=== PATIENT | male | born 1970 | race African-American/Black ===

== ENCOUNTER 2016-09-20 20:18 | Emergency (ER) | payer BC ==
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
[2016-09-20 20:28] VITALS: BP 150/88
[2016-09-20] MEDS ORDERED: TETRACAINE HCL 0.5% OPH SOLN 2 ML ONE (20:44)
[2016-09-20] MEDS ORDERED: TETRACAINE HCL 0.5% OPH SOLN 2 ML OU ONE (20:45)
[2016-09-20] MEDS ORDERED: ERYTHROMYCIN 0.5% OPH OINTMENT 3.5 GM (ER DISP) OU PRN (21:17)
[2016-09-20] MEDS ORDERED: HYDROCODONE/ACETAMINOPHEN 5-325 MG 6 TAB/DSPK PO PRN (21:18)
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
== END 2016-09-20 21:37 | disposition home or self-care (01) ==
LOC: ER 20:18
DX: T20.40XA Corrosion of unspecified degree of head, face, and neck, unspecified site, initial encounter (principal); G47.33 Obstructive sleep apnea (adult) (pediatric); F17.210 Nicotine dependence, cigarettes, uncomplicated; X58.XXXA Exposure to other specified factors, initial encounter
CPT/HCPCS: 99283

== ENCOUNTER 2016-11-03 06:16 | Inpatient (IN) | payer BC ==
[2016-11-03] MEDS ORDERED: IPRATROPIUM/ALBUTEROL 0.5-2.5 MG/3 ML AMPUL NEB ONE (06:51)
[2016-11-03] MEDS ORDERED: NORMAL SALINE 1000 ML 1,000 ML IV ONE ×2 (06:52→09:46)
[2016-11-03 07:06] LABS: ABSOLUTE BASOPHILS # (AUTO) 0.1 10^3/uL (0.0-0.2); ABSOLUTE LYMPHOCYTES (AUTO) 0.4 10^3/uL (0.5-4.7); ABSOLUTE MONOCYTES (AUTO) 0.7 10^3/uL (0.1-1.4); ABSOLUTE NEUT (AUTO) 5.3 10^3/uL (1.7-8.2); BASOPHILS % (AUTO) 0.8 % (0-2); EOSINOPHILS % (AUTO) 0.6 % (0-6); HEMATOCRIT 42.6 % (37.9-51.0); HGB HCT DIFFERENCE -0.6; LYMPHOCYTES % (AUTO) 6.3 % (13-45); MEAN CORPUSCULAR HEMOGLOBIN 28.8 pg (27.0-33.4); MEAN CORPUSCULAR HGB CONC 32.9 g/dL (32.0-36.0); MEAN CORPUSCULAR VOLUME 88 fl (80-97); MONOCYTES % (AUTO) 10.3 % (3-13); RED BLOOD COUNT 4.86 10^6/uL (4.35-5.55); RED CELL DISTRIBUTION WIDTH 14.2 % (11.5-14.0); VENOUS BLOOD BASE EXCESS 5.5 mmol/L; VENOUS BLOOD HCO3 33.9 mmol/L (20-32); VENOUS BLOOD PH 7.33 (7.30-7.42); WHITE BLOOD COUNT 6.5 10^3/uL (4.0-10.5)
[2016-11-03 07:09] LABS: VENOUS BLOOD PCO2 65.8 mmHg (35-63)
[2016-11-03 07:26] LABS: ALANINE AMINOTRANSFERASE 28 U/L (21-72); ALBUMIN 3.6 g/dL (3.5-5.0); ALKALINE PHOSPHATASE 74 U/L (38-126); ANION GAP 6 (5-19); ASPARTATE AMINO TRANSFERASE 36 U/L (17-59); BILIRUBIN,TOTAL 0.6 mg/dL (0.2-1.3); BLOOD UREA NITROGEN 14 mg/dL (7-20); CALCIUM 8.9 mg/dL (8.4-10.2); CARBON DIOXIDE 34 mmol/L (22-30); CHLORIDE 96 mmol/L (98-107); CREATININE RESULT 0.99 mg/dL (0.52-1.25); GLUCOSE 116 mg/dL (75-110); LIPASE 15.2 U/L (23-300); MAGNESIUM 1.8 mg/dL (1.6-2.3); POTASSIUM 4.8 mmol/L (3.6-5.0); SODIUM 135.5 mmol/L (137-145); TOTAL PROTEIN 7.2 g/dL (6.3-8.2)
[2016-11-03] MEDS ORDERED: CEFTRIAXONE 1 GM/D5W RTU 50 ML IV ONE (07:39)
[2016-11-03] MEDS ORDERED: AZITHROMYCIN 250 MG TABLET PO ONE (07:39)
[2016-11-03] MEDS ORDERED: ACETAMINOPHEN 325 MG TABLET PO ONE (07:40)
[2016-11-03] MEDS ORDERED: ALBUTEROL SULFATE 0.083% NEB 2.5 MG/3 ML AMPUL NEB ONE (07:42)
[2016-11-03 08:08] LABS: PROTHROMBIN TIME 13.8 SEC (11.4-15.4)
[2016-11-03 08:10] LABS: D-DIMER 0.39 ug/mL (0.00-0.50)
[2016-11-03 08:54] LABS: APPEARANCE,URINE CLEAR; BILIRUBIN,URINE NEGATIVE (NEGATIVE); GLUCOSE, URINE NEGATIVE (NEGATIVE); KETONES,URINE NEGATIVE (NEGATIVE); LEUKOCYTE ESTERASE,URINE NEGATIVE (NEGATIVE); NITRITE,URINE NEGATIVE (NEGATIVE); PROTEIN,URINE 30 mg/dL (NEGATIVE); URINE SPECIFIC GRAVITY 1.024
[2016-11-03 09:11] LABS: URINE BARBITURATES SCREEN NEGATIVE; URINE METHADONE SCREEN NEGATIVE; URINE OPIATES LOW NEGATIVE; URINE PHENCYCLIDINE SCREEN NEGATIVE
--- NOTE | 2016-11-03 10:04 | ER Document Report ---
ED General - General Chief Complaint: Pain All Over Stated Complaint: BODY PAIN TRAVEL OUTSIDE OF THE [place] IN LAST 30 DAYS: No - HPI Patient complains to provider of: diffuse pain fever respiratory di stress Notes: Patient coming in was noticed in the front to have the coughing breathing according to the triage nurse patient sleeping nodding off while she was answering questions patient was found to be hypoxic. Patient states has a history of sleep apnea has not been wearing his BiPAP. Patient also found to have a fever. Patient was brought to the back placed and oxygen oxygenation status remained normal while patient was awake our patient V did fall asleep will become hypoxic. Upon evaluation patient GCS of 15 over when resting and fasting lipid patient will easily fall asleep. Patient denies any pain states cough productive states he is having diffuse myalgias. Denies specific chest pain abdominal pain denies any nausea vomiting diarrhea. - Related Data Allergies/Adverse Reactions: No Known Allergies Allergy (Verified 11/03/16 06:26) Home Medications: Current Home Medications No Home Medications 11/03/16 [History] Past Medical History - Social History Smoking Status: Unknown if Ever Smoked Family History: Reviewed & Not Pertinent Pulmonary Medical History: Reports: Hx Sleep Apnea Past Surgical History: Reports: Hx Tonsillectomy, Other - Tracheostomy - Immunizations Hx Diphtheria, Pertussis, Tetanus Vaccination: Yes Review of Systems - Review of Systems Constitutional: Other - Myalgias EENT: No symptoms reported Cardiovascular: No symptoms reported Respiratory: Cough, Short of breath Gastrointestinal: No symptoms reported Genitourinary: No symptoms reported Male Genitourinary: No symptoms reported Musculoskeletal: No symptoms reported Skin: No symptoms reported Hematologic/Lymphatic: No symptoms reported Neurological/Psychological: No symptoms reported -: Yes All other systems reviewed and negative Physical Exam - Vital signs Vitals: Temp Pulse Resp BP Pulse Ox 99.0 F 111 H 22 H 121/73 80 L 11/03/16 06:32 11/03/16 06:32 11/03/16 06:32 11/03/16 06:32 11/03/16 06:32 Interpretation: Tachycardic, Hypoxic, Tachypneic - General General appearance: Appears well, Alert - HEENT Head: Normocephalic, Atraumatic Eyes: Normal Pupils: PERRL - Respiratory Respiratory status: No respiratory distress Chest status: Nontender Breath sounds: Wheezing Chest palpation: Normal - Cardiovascular Rhythm: Regular Heart sounds: Normal auscultation Murmur: No - Abdominal Inspection: Normal Distension: No distension Bowel sounds: Normal Tenderness: Nontender Organomegaly: No organomegaly - Back Back: Normal, Nontender - Extremities General upper extremity: Normal inspection, Nontender, Normal color, Normal ROM , Normal temperature General lower extremity: Normal inspection, Nontender, Normal color, Normal ROM , Normal temperature, Normal weight bearing. No: Royce's sign - Neurological Neuro grossly intact: Yes Cognition: Normal Orientation: AAOx4 Eveline Coma Scale Eye Opening: Spontaneous [place] Coma Scale Verbal: Oriented [place] Coma Scale Motor: Obeys Commands Eveline Coma Scale Total: 15 Speech: Normal Motor strength normal: LUE, RUE, LLE, RLE Sensory: Normal - Psychological Associated symptoms: Normal affect, Normal mood - Skin Skin Temperature: Warm Skin Moisture: Dry Skin Color: Normal Course - Re-evaluation Re-evalutation: 11/03/16 15:11 Patient was transitioned from is accounted to BiPAP. Patient chest x-ray does show a possible pneumonia. She was started on Rocephin and azithromycin. Patient was referred to the hospital service for further evaluation and admission. - Vital Signs Vital signs: Temp Pulse Resp BP Pulse Ox 98.7 F 91 22 H 121/88 H 97 11/03/16 09:39 11/03/16 14:00 11/03/16 14:00 11/03/16 14:02 11/03/16 14:02 - Laboratory Result Diagrams: 11/03/16 06:50 11/03/16 06:50 Laboratory results interpreted by me: 11/03/16 11/03/16 11/03/16 06:50 06:50 06:50 RDW 14.2 H Seg Neutrophils % 82.0 H Lymphocytes % 6.3 L Absolute Lymphocytes 0.4 L VBG pCO2 65.8 H* VBG HCO3 33.9 H Sodium 135.5 L Chloride 96 L Carbon Dioxide 34 H Glucose 116 H NT-Pro-B Natriuret Pep Lipase 15.2 L Urine Protein Urine Blood Urine Urobilinogen 11/03/16 11/03/16 07:39 08:37 RDW Seg Neutrophils % Lymphocytes % Absolute Lymphocytes VBG pCO2 VBG HCO3 Sodium Chloride Carbon Dioxide Glucose NT-Pro-B Natriuret Pep 446 H Lipase Urine Protein 30 H Urine Blood MODERATE H Urine Urobilinogen 4.0 H Critical Care Note - Critical Care Note Total time excluding time spent on procedures (mins): 35 Comments: Multiple evaluations for tachycardia hypoxia requiring BiPAP. Discharge - Discharge Clinical Impression: Hypoxia Respiratory failure Qualifiers: Chronicity: acute Respiratory failure complication: hypoxia and hypercapnia Qualified Code(s): J96.01 - Acute respiratory failure with hypoxia Pneumonia Qualifiers: Pneumonia type: due to unspecified organism Laterality: unspecified laterality Lung location: unspecified part of lung Qualified Code(s): J18.9 - Pneumonia, unspecified organism Fever Qualifiers: Fever type: unspecified Qualified Code(s): R50.9 - Fever, unspecified Disposition: HOME, SELF-CARE Admitting Provider: [facility] Unit Admitted: [facility]
[2016-11-03] MEDS ORDERED: ALBUTEROL SULFATE 0.083% NEB 2.5 MG/3 ML AMPUL NEB PRN (11:06)
[2016-11-03] MEDS ORDERED: ENOXAPARIN SODIUM INJ 40 MG/0.4 ML DISP.SYRIN SUBCUT ONE (13:00)
[2016-11-03] MEDS: ALBUTEROL SULFATE 0.083% NEB 2.5 MG/3 ML AMPUL NEB SCH ×2 (14:23→19:52)
--- NOTE | 2016-11-03 17:34 | PDOC H&P ---
History of Present Illness Admission Date/PCP: 11/03/16 11:06 Patient complains of: Shortness of breath History of Present Illness: JERMAINE FIGUEROA is a 46 year old male with one-day shortness of breath, fevers. Patient noted to have hypoxia in the emergency department. He states that his son has been sick. It's noted that patient has history of tracheostomy stoma has now healed. It is also noted that patient has obstructive sleep apnea and is on home CPAP. Past Medical History Pulmonary Medical History: Reports: Sleep Apnea Past Surgical History Past Surgical History: Reports: Tonsillectomy, Other - Tracheostomy Social History Information Source: Patient Lives with: Spouse/Significant other Smoking Status: Current Some Day Smoker - Cigar Frequency of Alcohol Use: None Hx Recreational Drug Use: No Drugs: None Hx Prescription Drug Abuse: No - Advance Directive Resuscitation Status: Full Code Family History Family History: Malignancy - Colon cancer Parental Family History Reviewed: Yes Children Family History Reviewed: Yes Sibling(s) Family History Reviewed.: Yes Medication/Allergy Home Medications: No Home Medications 11/03/16 Allergies/Adverse Reactions: No Known Allergies Allergy (Verified 11/03/16 06:26) Review of Systems Constitutional: PRESENT: chills, fever(s). ABSENT: headache(s), weight gain, weight loss Eyes: ABSENT: visual disturbances Ears: ABSENT: hearing changes Cardiovascular: ABSENT: chest pain, dyspnea on exertion, edema, orthropnea, palpitations Respiratory: PRESENT: cough, dyspnea. ABSENT: hemoptysis Gastrointestinal: ABSENT: abdominal pain, constipation, diarrhea, hematemesis, hematochezia, nausea, vomiting Genitourinary: ABSENT: dysuria, hematuria Musculoskeletal: ABSENT: joint swelling Integumentary: ABSENT: rash, wounds Neurological: ABSENT: abnormal gait, abnormal speech, confusion, dizziness, focal weakness, syncope Psychiatric: ABSENT: anxiety, depression, homidical ideation, suicidal ideation Endocrine: ABSENT: cold intolerance, heat intolerance, polydipsia, polyuria Hematologic/Lymphatic: ABSENT: easy bleeding, easy bruising Physical Exam Vital Signs: Temp Pulse Resp BP Pulse Ox 99.3 F 101 H 19 138/84 H 94 11/03/16 15:56 11/03/16 15:58 11/03/16 15:56 11/03/16 15:56 11/03/16 15:56 Intake & Output 11/02/16 11/03/16 11/04/16 06:59 06:59 06:59 Weight 131 kg PHYSICAL EXAM: GENERAL: Appears well, no acute distress, obese HEENT: Normocephalic, no scleral icterus, conjunctiva clear, EOEM intact, PERRLA , moist mucous membranes NECK: trachea midline, healed stoma from remote tracheostomy, no thyromegally RESPIRATORY: Bilateral wheezes/rhonchi CARDIAC: Regular rate and rhythm, no murmur/elisa/rub ABDOMEN: Soft, no distension, no tenderness, no guarding, normal bowel sounds, negative Mace sign RECTAL: deferred : deferred EXTREMITIES: No edema, cyanosis, clubbing MUSCULOSKELETAL: No joint swelling or deformity VASCULAR: normal peripheral pulses NEUROLOGIC: Alert, oriented to person/place/time, normal speech, cranial nerves grossly intact, 5/5 strength in all extremities, tactile sensation intact in all extremities SKIN: No rash, no wounds, no worrisome skin lesions PSYCHIATRIC: Normal mood, normal affect Results Laboratory Results: Labs- All tests 24 hr 11/03/16 11/03/16 11/03/16 06:50 06:50 06:50 WBC 6.5 RBC 4.86 Hgb 14.0 Hct 42.6 MCV 88 MCH 28.8 MCHC 32.9 RDW 14.2 H Plt Count 254 Seg Neutrophils % 82.0 H Lymphocytes % 6.3 L Monocytes % 10.3 Eosinophils % 0.6 Basophils % 0.8 Absolute Neutrophils 5.3 Absolute Lymphocytes 0.4 L Absolute Monocytes 0.7 Absolute Eosinophils 0.0 Absolute Basophils 0.1 PT Cancelled INR Cancelled D-Dimer VBG pH VBG pCO2 VBG HCO3 VBG Base Excess Sodium 135.5 L Potassium 4.8 Chloride 96 L Carbon Dioxide 34 H Anion Gap 6 BUN 14 Creatinine 0.99 Est GFR ( Amer) > 60 Est GFR (Non-Af Amer) > 60 Glucose 116 H POC Glucose Calcium 8.9 Magnesium 1.8 Total Bilirubin 0.6 Direct Bilirubin 0.0 AST 36 ALT 28 Alkaline Phosphatase 74 Troponin I NT-Pro-B Natriuret Pep Total Protein 7.2 Albumin 3.6 Lipase 15.2 L Urine Color Urine Appearance Urine pH Ur Specific [place] Urine Protein Urine Glucose (UA) Urine Ketones Urine Blood Urine Nitrite Urine Bilirubin Urine Urobilinogen Ur Leukocyte Esterase Urine WBC (Auto) Urine RBC (Auto) Squamous Epi Cells Auto Urine Mucus (Auto) Urine Ascorbic Acid Urine Opiates Screen Urine Methadone Screen Ur Barbiturates Screen Ur Phencyclidine Scrn Ur Amphetamines Screen U Benzodiazepines Scrn Urine Cocaine Screen U Marijuana (THC) Screen Influenza A (Rapid) Influenza B (Rapid) 11/03/16 11/03/16 11/03/16 06:50 06:50 07:04 WBC RBC Hgb Hct MCV MCH MCHC RDW Plt Count Seg Neutrophils % Lymphocytes % Monocytes % Eosinophils % Basophils % Absolute Neutrophils Absolute Lymphocytes Absolute Monocytes Absolute Eosinophils Absolute Basophils PT INR D-Dimer VBG pH 7.33 VBG pCO2 65.8 H* VBG HCO3 33.9 H VBG Base Excess 5.5 Sodium Potassium Chloride Carbon Dioxide Anion Gap BUN Creatinine Est GFR ( Amer) Est GFR (Non-Af Amer) Glucose POC Glucose 109 Calcium Magnesium Total Bilirubin Direct Bilirubin AST ALT Alkaline Phosphatase Troponin I NT-Pro-B Natriuret Pep Total Protein Albumin Lipase Urine Color Urine Appearance Urine pH Ur Specific [place] Urine Protein Urine Glucose (UA) Urine Ketones Urine Blood Urine Nitrite Urine Bilirubin Urine Urobilinogen Ur Leukocyte Esterase Urine WBC (Auto) Urine RBC (Auto) Squamous Epi Cells Auto Urine Mucus (Auto) Urine Ascorbic Acid Urine Opiates Screen Urine Methadone Screen Ur Barbiturates Screen Ur Phencyclidine Scrn Ur Amphetamines Screen U Benzodiazepines Scrn Urine Cocaine Screen U Marijuana (THC) Screen Influenza A (Rapid) NEGATIVE Influenza B (Rapid) NEGATIVE 11/03/16 11/03/16 11/03/16 07:39 07:39 07:39 WBC RBC Hgb Hct MCV MCH MCHC RDW Plt Count Seg Neutrophils % Lymphocytes % Monocytes % Eosinophils % Basophils % Absolute Neutrophils Absolute Lymphocytes Absolute Monocytes Absolute Eosinophils Absolute Basophils PT Cancelled 13.8 INR Cancelled 1.03 D-Dimer 0.39 VBG pH VBG pCO2 VBG HCO3 VBG Base Excess Sodium Potassium Chloride Carbon Dioxide Anion Gap BUN Creatinine Est GFR ( Amer) Est GFR (Non-Af Amer) Glucose POC Glucose Calcium Magnesium Total Bilirubin Direct Bilirubin AST ALT Alkaline Phosphatase Troponin I NT-Pro-B Natriuret Pep 446 H Total Protein Albumin Lipase Urine Color Urine Appearance Urine pH Ur Specific [place] Urine Protein Urine Glucose (UA) Urine Ketones Urine Blood Urine Nitrite Urine Bilirubin Urine Urobilinogen Ur Leukocyte Esterase Urine WBC (Auto) Urine RBC (Auto) Squamous Epi Cells Auto Urine Mucus (Auto) Urine Ascorbic Acid Urine Opiates Screen Urine Methadone Screen Ur Barbiturates Screen Ur Phencyclidine Scrn Ur Amphetamines Screen U Benzodiazepines Scrn Urine Cocaine Screen U Marijuana (THC) Screen Influenza A (Rapid) Influenza B (Rapid) 11/03/16 11/03/16 11/03/16 07:39 08:37 08:37 WBC RBC Hgb Hct MCV MCH MCHC RDW Plt Count Seg Neutrophils % Lymphocytes % Monocytes % Eosinophils % Basophils % Absolute Neutrophils Absolute Lymphocytes Absolute Monocytes Absolute Eosinophils Absolute Basophils PT INR D-Dimer VBG pH VBG pCO2 VBG HCO3 VBG Base Excess Sodium Potassium Chloride Carbon Dioxide Anion Gap BUN Creatinine Est GFR ( Amer) Est GFR (Non-Af Amer) Glucose POC Glucose Calcium Magnesium Total Bilirubin Direct Bilirubin AST ALT Alkaline Phosphatase Troponin I < 0.012 NT-Pro-B Natriuret Pep Total Protein Albumin Lipase Urine Color YELLOW Urine Appearance CLEAR Urine pH 5.0 Ur Specific [place] 1.024 Urine Protein 30 H Urine Glucose (UA) NEGATIVE Urine Ketones NEGATIVE Urine Blood MODERATE H Urine Nitrite NEGATIVE Urine Bilirubin NEGATIVE Urine Urobilinogen 4.0 H Ur Leukocyte Esterase NEGATIVE Urine WBC (Auto) 2 Urine RBC (Auto) 8 Squamous Epi Cells Auto <1 Urine Mucus (Auto) RARE Urine Ascorbic Acid NEGATIVE Urine Opiates Screen NEGATIVE Urine Methadone Screen NEGATIVE Ur Barbiturates Screen NEGATIVE Ur Phencyclidine Scrn NEGATIVE Ur Amphetamines Screen NEGATIVE U Benzodiazepines Scrn NEGATIVE Urine Cocaine Screen NEGATIVE U Marijuana (THC) Screen NEGATIVE Influenza A (Rapid) Influenza B (Rapid) Impressions: Chest X-Ray 11/03/16 06:51 IMPRESSION: Focal area of increased density seen in the infrahilar region on the right medially which could represent area of atelectasis, edema or developing infiltrate. Cardiomegaly with central pulmonary vascular congestion. Assessment & Plan - Diagnosis (1) Acute hypoxemic respiratory failure Is this a current diagnosis for this admission?: YesPlan: Continue oxygen supplementation. (2) Pneumonia Qualifiers: Pneumonia type: due to unspecified organism Laterality: unspecified laterality Lung location: unspecified part of lung Qualified Code(s): J18.9 - Pneumonia, unspecified organism Is this a current diagnosis for this admission?: YesPlan: Likely bacterial. Continue IV Rocephin and IV azithromycin initiated in the emergency department. Check blood and sputum culture. (3) Obstructive sleep apnea Is this a current diagnosis for this admission?: YesPlan: Continue BiPAP for now. Patient has home CPAP in place. - Time Time Spent: Greater than 70 Minutes Anticipated discharge: Home Within: within 72 hours - Inpatient Certification Based on my medical assessment, after consideration of the patient's comorbidities, presenting symptoms, or acuity I expect that the services needed warrant INPATIENT care.: Yes I certify that my determination is in accordance with my understanding of Medicare's requirements for reasonable and necessary INPATIENT services [42 CFR 412.3e].: Yes Medical Necessity: Need Close Monitoring Due to Risk of Patient Decompensation, Need For Continuous Telemetry Monitoring, Need for IV Antibiotics
[2016-11-03] MEDS: ACETAMINOPHEN 325 MG TABLET PO PRN (20:11)
[2016-11-03] MEDS: GUAIFENESIN 600 MG TABLET.SA PO SCH (21:46)
[2016-11-04] MEDS: ACETAMINOPHEN 325 MG TABLET PO PRN (05:47)
[2016-11-04 06:15] LABS: ANION GAP 9 (5-19); BLOOD UREA NITROGEN 13 mg/dL (7-20); CALCIUM 8.8 mg/dL (8.4-10.2); CARBON DIOXIDE 32 mmol/L (22-30); CHLORIDE 94 mmol/L (98-107); CREATININE RESULT 0.79 mg/dL (0.52-1.25); GLUCOSE 106 mg/dL (75-110); POTASSIUM 4.5 mmol/L (3.6-5.0); SODIUM 134.9 mmol/L (137-145)
[2016-11-04 06:17] LABS: ABSOLUTE BASOPHILS # (AUTO) 0.1 10^3/uL (0.0-0.2); ABSOLUTE LYMPHOCYTES (AUTO) 0.6 10^3/uL (0.5-4.7); ABSOLUTE MONOCYTES (AUTO) 0.6 10^3/uL (0.1-1.4); ABSOLUTE NEUT (AUTO) 3.1 10^3/uL (1.7-8.2); BASOPHILS % (AUTO) 1.6 % (0-2); EOSINOPHILS % (AUTO) 0.2 % (0-6); HEMATOCRIT 44.8 % (37.9-51.0); HEMOGLOBIN 14.4 g/dL (13.5-17.0); HGB HCT DIFFERENCE -1.6; LYMPHOCYTES % (AUTO) 13.5 % (13-45); MEAN CORPUSCULAR HEMOGLOBIN 28.3 pg (27.0-33.4); MEAN CORPUSCULAR HGB CONC 32.2 g/dL (32.0-36.0); MEAN CORPUSCULAR VOLUME 88 fl (80-97); MONOCYTES % (AUTO) 14.4 % (3-13); RED CELL DISTRIBUTION WIDTH 13.8 % (11.5-14.0); SEGMENTED NEUTROPHILS % (AUTO) 70.3 % (42-78); WHITE BLOOD COUNT 4.4 10^3/uL (4.0-10.5)
[2016-11-04] MEDS: ALBUTEROL SULFATE 0.083% NEB 2.5 MG/3 ML AMPUL NEB SCH ×3 (07:43→19:41)
--- NOTE | 2016-11-04 08:20 | EKG REPORT ---
SEVERITY:- BORDERLINE ECG - SINUS TACHYCARDIA PROBABLE LEFT ATRIAL ABNORMALITY BORDERLINE LEFT AXIS DEVIATION : Confirmed by: Katherine Hutson MD 04-Nov-2016 08:19:35
[2016-11-04] MEDS: ENOXAPARIN SODIUM INJ 40 MG/0.4 ML DISP.SYRIN SUBCUT SCH (09:53)
[2016-11-04] MEDS: AZITHROMYCIN 500 MG in DEXTROSE 5%-WATER 250 ML IV SCH (09:54)
[2016-11-04] MEDS: GUAIFENESIN 600 MG TABLET.SA PO SCH ×2 (09:54→22:23)
[2016-11-04] MEDS: CEFTRIAXONE 1 GM/D5W RTU 50 ML IV SCH (09:55)
--- NOTE | 2016-11-04 18:26 | PDOC PROGRESS REPORT ---
Subjective Progress Note for:: 11/04/16 Subjective:: Patient shortness of breath is improved. Patient denies fever, chills, headache , new focal weakness, chest pain, abdominal pain, nausea, vomiting, diarrhea, constipation. Physical Exam Vital Signs: Temp Pulse Resp BP Pulse Ox 98.0 F 92 19 108/82 96 11/04/16 15:57 11/04/16 15:57 11/04/16 15:57 11/04/16 15:57 11/04/16 15:57 Intake & Output 11/03/16 11/04/16 11/05/16 06:59 06:59 06:59 Intake Total 608 500 Output Total 800 Balance 608 -300 Weight 131 kg GENERAL: No acute distress, obese HEENT: Conjunctiva clear, nonicteric, moist mucous membranes, no JVD, midline trachea RESPIRATORY: Faint bilateral wheezes, good air excursion CARDIAC: Regular rate and rhythm, no murmurs/gallops/rubs ABDOMEN: Soft, nondistended, nontender, positive bowel sounds, no rebound, no guarding EXTREMETIES: No edema, cyanosis, clubbing NEUROLOGIC: Alert, oriented to person/place/time, CN's grossly intact, no focal deficits SKIN: No rash, wounds PSYCH: Normal mood, normal affect Results Laboratory Results: 11/04/16 05:28 11/04/16 05:28 11/04/16 11/04/16 05:28 05:28 WBC 4.4 RBC 5.10 Hgb 14.4 Hct 44.8 MCV 88 MCH 28.3 MCHC 32.2 RDW 13.8 Plt Count 185 Seg Neutrophils % 70.3 Lymphocytes % 13.5 Monocytes % 14.4 H Eosinophils % 0.2 Basophils % 1.6 Absolute Neutrophils 3.1 Absolute Lymphocytes 0.6 Absolute Monocytes 0.6 Absolute Eosinophils 0.0 Absolute Basophils 0.1 Sodium 134.9 L Potassium 4.5 Chloride 94 L Carbon Dioxide 32 H Anion Gap 9 BUN 13 Creatinine 0.79 Est GFR ( Amer) > 60 Est GFR (Non-Af Amer) > 60 Glucose 106 Calcium 8.8 11/04/16 07:10 Sputum Gram Stain - Final 11/04/16 07:10 Sputum Sputum Culture - Final Impressions: Chest X-Ray 11/03/16 06:51 IMPRESSION: Focal area of increased density seen in the infrahilar region on the right medially which could represent area of atelectasis, edema or developing infiltrate. Cardiomegaly with central pulmonary vascular congestion. Assessment & Plan - Diagnosis (1) Acute hypoxemic respiratory failure Is this a current diagnosis for this admission?: YesPlan: Continue oxygen supplementation. Attempt to wean off oxygen prior to discharge. (2) Pneumonia Qualifiers: Pneumonia type: due to unspecified organism Laterality: unspecified laterality Lung location: unspecified part of lung Qualified Code(s): J18.9 - Pneumonia, unspecified organism Is this a current diagnosis for this admission?: YesPlan: Likely bacterial. Continue IV Rocephin and IV azithromycin initiated in the emergency department. Check blood and sputum culture. (3) Obstructive sleep apnea Is this a current diagnosis for this admission?: YesPlan: Continue BiPAP for now. Patient has home CPAP in place. - Time Time Spent with patient: 25-34 minutes
[2016-11-05 05:08] LABS: ABSOLUTE EOSINOPHILS # (AUTO) 0.1 10^3/uL (0.0-0.6); ABSOLUTE LYMPHOCYTES (AUTO) 1.2 10^3/uL (0.5-4.7); ABSOLUTE MONOCYTES (AUTO) 0.6 10^3/uL (0.1-1.4); ABSOLUTE NEUT (AUTO) 2.8 10^3/uL (1.7-8.2); BASOPHILS % (AUTO) 0.8 % (0-2); EOSINOPHILS % (AUTO) 1.4 % (0-6); HEMATOCRIT 45.8 % (37.9-51.0); HGB HCT DIFFERENCE -0.8; LYMPHOCYTES % (AUTO) 25.6 % (13-45); MEAN CORPUSCULAR HEMOGLOBIN 28.9 pg (27.0-33.4); MEAN CORPUSCULAR HGB CONC 32.8 g/dL (32.0-36.0); MEAN CORPUSCULAR VOLUME 88 fl (80-97); MONOCYTES % (AUTO) 12.7 % (3-13); RED BLOOD COUNT 5.19 10^6/uL (4.35-5.55); RED CELL DISTRIBUTION WIDTH 13.8 % (11.5-14.0); SEGMENTED NEUTROPHILS % (AUTO) 59.5 % (42-78); WHITE BLOOD COUNT 4.7 10^3/uL (4.0-10.5)
[2016-11-05 05:25] LABS: ANION GAP 11 (5-19); BLOOD UREA NITROGEN 16 mg/dL (7-20); CALCIUM 9.2 mg/dL (8.4-10.2); CARBON DIOXIDE 34 mmol/L (22-30); CHLORIDE 93 mmol/L (98-107); CREATININE RESULT 1.04 mg/dL (0.52-1.25); GLUCOSE 103 mg/dL (75-110); SODIUM 138.4 mmol/L (137-145)
[2016-11-05] MEDS: ALBUTEROL SULFATE 0.083% NEB 2.5 MG/3 ML AMPUL NEB SCH ×3 (08:38→19:43)
[2016-11-05] MEDS: GUAIFENESIN 600 MG TABLET.SA PO SCH ×2 (10:34→21:42)
[2016-11-05] MEDS: ENOXAPARIN SODIUM INJ 40 MG/0.4 ML DISP.SYRIN SUBCUT SCH (10:34)
[2016-11-05] MEDS: CEFTRIAXONE 1 GM/D5W RTU 50 ML IV SCH (10:35)
[2016-11-05] MEDS: AZITHROMYCIN 500 MG in DEXTROSE 5%-WATER 250 ML IV SCH (10:35)
--- NOTE | 2016-11-05 20:24 | PDOC PROGRESS REPORT ---
Subjective Progress Note for:: 11/05/16 Subjective:: His shortness of breath is improving. His cough is minimally productive. He denies fevers sweats or chills. He denies chest pain, abdominal pain, nausea vomiting or diarrhea. Physical Exam Vital Signs: Temp Pulse Resp BP Pulse Ox 98.0 F 95 19 139/88 H 94 11/05/16 07:25 11/05/16 07:25 11/05/16 07:25 11/05/16 07:25 11/05/16 07:25 Intake & Output 11/04/16 11/05/16 11/06/16 06:59 06:59 06:59 Intake Total 608 1328 Output Total 2050 Balance 608 -722 Weight 131 kg 126.9 kg Additional comments: GENERAL: No acute distress, obese HEENT: Conjunctiva clear, nonicteric, moist mucous membranes, no JVD, midline trachea RESPIRATORY: Faint bilateral wheezes, good air excursion CARDIAC: Regular rate and rhythm, no murmurs/gallops/rubs ABDOMEN: Soft, nondistended, nontender, positive bowel sounds, no rebound, no guarding EXTREMETIES: No edema, cyanosis, clubbing NEUROLOGIC: Alert, oriented to person/place/time, CN's grossly intact, no focal deficits SKIN: No rash, wounds PSYCH: Normal mood, normal affect Results Laboratory Results: 11/05/16 04:15 11/05/16 04:15 11/05/16 11/05/16 04:15 04:15 WBC 4.7 RBC 5.19 Hgb 15.0 Hct 45.8 MCV 88 MCH 28.9 MCHC 32.8 RDW 13.8 Plt Count 178 Seg Neutrophils % 59.5 Lymphocytes % 25.6 Monocytes % 12.7 Eosinophils % 1.4 Basophils % 0.8 Absolute Neutrophils 2.8 Absolute Lymphocytes 1.2 Absolute Monocytes 0.6 Absolute Eosinophils 0.1 Absolute Basophils 0.0 Sodium 138.4 Potassium 5.0 Chloride 93 L Carbon Dioxide 34 H Anion Gap 11 BUN 16 Creatinine 1.04 Est GFR ( Amer) > 60 Est GFR (Non-Af Amer) > 60 Glucose 103 Calcium 9.2 11/04/16 07:10 Sputum Gram Stain - Final 11/04/16 07:10 Sputum Sputum Culture - Final Impressions: Chest X-Ray 11/03/16 06:51 IMPRESSION: Focal area of increased density seen in the infrahilar region on the right medially which could represent area of atelectasis, edema or developing infiltrate. Cardiomegaly with central pulmonary vascular congestion. Assessment & Plan - Diagnosis (1) Pneumonia Qualifiers: Pneumonia type: due to unspecified organism Laterality: unspecified laterality Lung location: unspecified part of lung Qualified Code(s): J18.9 - Pneumonia, unspecified organism Is this a current diagnosis for this admission?: YesPlan: Continue current antibiotics. We'll consider switching to oral antibiotics and possibly discharging in 24-48 hours. (2) Acute hypoxemic respiratory failure Is this a current diagnosis for this admission?: YesPlan: Oxygen supplementation as needed. (3) Obstructive sleep apnea Is this a current diagnosis for this admission?: YesPlan: He has home CPAP. We'll use BiPAP in-hospital as needed. - Time Time Spent with patient: 15-24 minutes
[2016-11-06 05:38] LABS: ABSOLUTE EOSINOPHILS # (AUTO) 0.1 10^3/uL (0.0-0.6); ABSOLUTE LYMPHOCYTES (AUTO) 1.7 10^3/uL (0.5-4.7); ABSOLUTE MONOCYTES (AUTO) 0.6 10^3/uL (0.1-1.4); ABSOLUTE NEUT (AUTO) 1.9 10^3/uL (1.7-8.2); BASOPHILS % (AUTO) 0.9 % (0-2); EOSINOPHILS % (AUTO) 2.8 % (0-6); HEMATOCRIT 45.4 % (37.9-51.0); HEMOGLOBIN 14.9 g/dL (13.5-17.0); HGB HCT DIFFERENCE -0.7; LYMPHOCYTES % (AUTO) 38.4 % (13-45); MEAN CORPUSCULAR HEMOGLOBIN 28.8 pg (27.0-33.4); MEAN CORPUSCULAR HGB CONC 32.9 g/dL (32.0-36.0); MEAN CORPUSCULAR VOLUME 88 fl (80-97); MONOCYTES % (AUTO) 14.1 % (3-13); RED BLOOD COUNT 5.18 10^6/uL (4.35-5.55); RED CELL DISTRIBUTION WIDTH 13.9 % (11.5-14.0); SEGMENTED NEUTROPHILS % (AUTO) 43.8 % (42-78); WHITE BLOOD COUNT 4.3 10^3/uL (4.0-10.5)
[2016-11-06 05:54] LABS: ANION GAP 10 (5-19); BLOOD UREA NITROGEN 14 mg/dL (7-20); CARBON DIOXIDE 33 mmol/L (22-30); CHLORIDE 93 mmol/L (98-107); GLUCOSE 92 mg/dL (75-110); POTASSIUM 4.4 mmol/L (3.6-5.0); SODIUM 135.7 mmol/L (137-145)
[2016-11-06] MEDS: ALBUTEROL SULFATE 0.083% NEB 2.5 MG/3 ML AMPUL NEB SCH (08:05)
[2016-11-06] MEDS: ENOXAPARIN SODIUM INJ 40 MG/0.4 ML DISP.SYRIN SUBCUT SCH (09:53)
[2016-11-06] MEDS: GUAIFENESIN 600 MG TABLET.SA PO SCH (10:02)
[2016-11-06] MEDS: CEFTRIAXONE 1 GM/D5W RTU 50 ML IV SCH (10:03)
[2016-11-06] MEDS: AZITHROMYCIN 500 MG in DEXTROSE 5%-WATER 250 ML IV SCH (10:03)
--- NOTE | 2016-11-06 10:16 | PDOC DISCHARGE SUMMARY ---
General - Admit/Disc Date/PCP Admission Date/Primary Care Provider: 11/03/16 11:06 Discharge Date: 11/06/16 - Discharge Diagnosis (1) Pneumonia Is this a current diagnosis for this admission?: YesSummary: The patient was admitted on 11/03/2016 with 1 day history of shortness of breath and fevers. He was noted to be hypoxic in the emergency department. His initial temperature was 99.3. His initial white blood count was 6.5, but the chest x-ray showed focal area of increased density seen in the infrahilar region on the right medially. The patient had bilateral wheezes and rhonchi. He also has a past history of respiratory failure including ventilator use and stoma which has healed. He also has obstructive sleep apnea and uses CPAP at home. He was treated with intravenous fluids, Rocephin, azithromycin, inhaled bronchodilators, and supplemental oxygen. He steadily improved. He was discharged home feeling much better. He was given a Z-Matt at discharge. (2) Acute hypoxemic respiratory failure Is this a current diagnosis for this admission?: YesSummary: The patient received low-flow oxygen supplementation while in the hospital. On discharge date, room air O2 saturation was 90%. (3) Obstructive sleep apnea Is this a current diagnosis for this admission?: YesSummary: The patient used nocturnal BiPAP while in the hospital. He will resume his home CPAP after discharge. - Additional Information Resuscitation Status: Full Code Discharge Diet: As Tolerated Discharge Activity: Activity As Tolerated Home Medications: Azithromycin [Zithromax Tri-Matt] 500 mg PO DAILY #1 pkg 11/06/16 Guaifenesin [Mucinex Sr 600 mg Tablet.sa] 1,200 mg PO Q12 #0 tablet.sa 11/06/16 History of Present Illness History of Present Illness: JERMAINE FIGUEROA is a 46 year old male with one-day shortness of breath, fevers. Patient noted to have hypoxia in the emergency department. He states that his son has been sick. It's noted that patient has history of tracheostomy stoma has now healed. It is also noted that patient has obstructive sleep apnea and is on home CPAP. Hospital Course Hospital Course: The patient steadily improved with the use of intravenous fluids, antibiotics, bronchodilators, and supplemental oxygen. Physical Exam Vital Signs: Temp Pulse Resp BP Pulse Ox 97.2 F 98 20 116/74 92 11/06/16 03:52 11/06/16 08:05 11/06/16 08:05 11/06/16 03:52 11/06/16 08:05 Intake & Output 11/05/16 11/06/16 11/07/16 06:59 06:59 06:59 Intake Total 1328 907 Output Total 2053 6400 Balance -722 -1393 Weight 126.9 kg 125 kg Additional comments: GENERAL: Appears well, no acute distress, obese HEENT: Normocephalic, no scleral icterus, conjunctiva clear, EOEM intact, PERRLA , moist mucous membranes NECK: trachea midline, healed stoma from remote tracheostomy, no thyromegally RESPIRATORY: coarse breath sounds bilaterally, without dominant rhonchi. Wheezes much improved, essentially resolved. CARDIAC: Regular rate and rhythm, no murmur/elisa/rub ABDOMEN: Soft, no distension, no tenderness, no guarding, normal bowel sounds, negative Mace sign RECTAL: deferred : deferred EXTREMITIES: No edema, cyanosis, clubbing MUSCULOSKELETAL: No joint swelling or deformity VASCULAR: normal peripheral pulses NEUROLOGIC: Alert, oriented to person/place/time, normal speech, cranial nerves grossly intact, 5/5 strength in all extremities, tactile sensation intact in all extremities SKIN: No rash, no wounds, no worrisome skin lesions PSYCHIATRIC: Normal mood, normal affect Results Laboratory Results: 11/06/16 04:41 11/06/16 04:41 11/06/16 11/06/16 04:41 04:41 WBC 4.3 RBC 5.18 Hgb 14.9 Hct 45.4 MCV 88 MCH 28.8 MCHC 32.9 RDW 13.9 Plt Count 195 Seg Neutrophils % 43.8 Lymphocytes % 38.4 Monocytes % 14.1 H Eosinophils % 2.8 Basophils % 0.9 Absolute Neutrophils 1.9 Absolute Lymphocytes 1.7 Absolute Monocytes 0.6 Absolute Eosinophils 0.1 Absolute Basophils 0.0 Sodium 135.7 L Potassium 4.4 Chloride 93 L Carbon Dioxide 33 H Anion Gap 10 BUN 14 Creatinine 1.00 Est GFR ( Amer) > 60 Est GFR (Non-Af Amer) > 60 Glucose 92 Calcium 9.0 Impressions: Chest X-Ray 11/03/16 06:51 IMPRESSION: Focal area of increased density seen in the infrahilar region on the right medially which could represent area of atelectasis, edema or developing infiltrate. Cardiomegaly with central pulmonary vascular congestion. Qualifiers PATEINT BEING DISCHARGED WITH ANY OF THE FOLLOWING DIAGNOSIS?: No Plan Discharge Plan: The patient will be discharged home. He will continue his Z-Matt. A prescription for a Zithromax Tri-Matt was given. He was also given a prescription for her continuing Mucinex 600 mg twice a day. He will resume his home CPAP. He will follow-up with his primary care physician and automatic edger. Time Spent: Less than 30 Minutes
[2016-11-06 10:31] VITALS: BP 118/83
== END 2016-11-06 11:07 | disposition home or self-care (01) | DRG 193 ==
LOC: ER 06:16 → UNDOADMIN 10:01 → EH 10:01 → 3N 14:57
PROVIDERS: ADMIT Family Medicine; ATTEND Family Medicine
PROC: 3E0F73Z Introduction of Anti-inflammatory into Respiratory Tract, Via Natural or Artificial Opening (ICD-10-PCS; principal; 2016-11-03)
PROC: 5A09457 Assistance with Respiratory Ventilation, 24-96 Consecutive Hours, Continuous Positive Airway Pressure (ICD-10-PCS; 2016-11-03)
DX: J18.9 Pneumonia, unspecified organism (principal); J96.01 Acute respiratory failure with hypoxia; J96.02 Acute respiratory failure with hypercapnia; G47.33 Obstructive sleep apnea (adult) (pediatric); Z99.81 Dependence on supplemental oxygen; F17.290 Nicotine dependence, other tobacco product, uncomplicated; Z80.0 Family history of malignant neoplasm of digestive organs
CPT/HCPCS: 36415; 71010; 80048; 80053; 80307; 81001; 82803; 82962; 83690; 83735; 83880; 84484; 85025; 85379; 85610; 87040; 87086; 87205; 87804; 93005; 93010; 94640; 94660; 96365; 99291; J0456; J0696; J1650; J3490; J7030; J7060; J7620

== ENCOUNTER 2017-03-20 18:29 | Inpatient (IN) | payer BC ==
[2017-03-20] MEDS ORDERED: IPRATROPIUM/ALBUTEROL 0.5-2.5 MG/3 ML AMPUL NEB ONE ×2 (18:59→19:00)
--- NOTE | 2017-03-20 18:59 | ER Document Report ---
ED Medical Screen (RME) - General Chief Complaint: Breathing Difficulty Stated Complaint: BREATHING TROUBLE Time Seen by Provider: 03/20/17 18:55 Mode of Arrival: Wheelchair Information source: Patient Notes: 47-year-old male complaints of shortness breath difficulty breathing, patient found hypoxic 89% on room air I have greeted and performed a rapid initial assessment of this patient. A comprehensive ED assessment and evaluation of the patient, analysis of test results and completion of the medical decision making process will be conducted by additional ED providers. PHYSICAL EXAMINATION: GENERAL: Well-appearing, well-nourished and in no acute distress. HEAD: Atraumatic, normocephalic. EYES: Pupils equal round extraocular movements intact, conjunctiva are normal. ENT: Nares patent NECK: Normal range of motion LUNGS: Decreased breath sounds all throughout Musculoskeletal: Normal range of motion NEUROLOGICAL: Normal speech, normal gait. PSYCH: Normal mood, normal affect. SKIN: Warm, Dry, normal turgor, no rashes or lesions noted. TRAVEL OUTSIDE OF THE [place] IN LAST 30 DAYS: No - Related Data Allergies/Adverse Reactions: No Known Allergies Allergy (Verified 11/03/16 06:26) Past Medical History Pulmonary Medical History: Reports: Hx Asthma, Hx Bronchitis, Hx Pneumonia, Hx Sleep Apnea Renal/ Medical History: Denies: Hx Peritoneal Dialysis Past Surgical History: Reports: Hx Tonsillectomy, Other - Tracheostomy - Immunizations Hx Diphtheria, Pertussis, Tetanus Vaccination: Yes Physical Exam - Vital signs Vitals: Temp Pulse Resp BP Pulse Ox 98.3 F 105 H 26 H 145/97 H 95 03/20/17 18:32 03/20/17 18:32 03/20/17 18:32 03/20/17 18:32 03/20/17 18:32 Course - Vital Signs Vital signs: Temp Pulse Resp BP Pulse Ox 98.3 F 105 H 26 H 145/97 H 95 03/20/17 18:32 03/20/17 18:32 03/20/17 18:32 03/20/17 18:32 03/20/17 18:32
[2017-03-20] MEDS ORDERED: ALBUTEROL SULFATE 0.083% NEB 2.5 MG/3 ML AMPUL NEB ONE (19:34)
[2017-03-20] MEDS ORDERED: METHYLPREDNISOLONE INJ 125 MG/2 ML SDV IV ONE (19:42)
--- NOTE | 2017-03-20 19:42 | ER Document Report ---
ED General - General Chief Complaint: Breathing Difficulty Stated Complaint: BREATHING TROUBLE Time Seen by Provider: 03/20/17 18:55 Mode of Arrival: Wheelchair Notes: Patient is a 47-year-old male with past medical history of morbid obesity, asthma with continued tobacco use, sleep apnea without use of a CPAP machine on a regular basis who presents with 3 days of progressively worsening shortness of breath and cough. States he had similar symptoms in the past when he had a pneumonia. Nothing improves his symptoms and he states any form of exertion worsens his shortness of breath. He has not seen his primary care doctor regarding today's concerns. He denies any chest pain, headache, altered mental status, fever, or sputum production. TRAVEL OUTSIDE OF THE [place] IN LAST 30 DAYS: No - HPI Onset/Duration: Gradual Quality of pain: No pain Severity: None Pain Level: Denies Similar symptoms previously: Yes Recently seen / treated by doctor: No - Related Data Allergies/Adverse Reactions: No Known Allergies Allergy (Verified 11/03/16 06:26) Past Medical History - General Information source: Patient - Social History Smoking Status: Current Every Day Smoker Frequency of alcohol use: None Drug Abuse: None Lives with: Spouse/Significant other Family History: Malignancy - Colon cancer Patient has suicidal ideation: No Patient has homicidal ideation: No Pulmonary Medical History: Reports: Hx Asthma, Hx Bronchitis, Hx Pneumonia, Hx Sleep Apnea Renal/ Medical History: Denies: Hx Peritoneal Dialysis Past Surgical History: Reports: Hx Tonsillectomy, Other - Tracheostomy - Immunizations Hx Diphtheria, Pertussis, Tetanus Vaccination: Yes Review of Systems - Review of Systems Notes: Constitutional: Negative for fever. HENT: Negative for sore throat. Eyes: Negative for visual changes. Cardiovascular: Negative for chest pain. Respiratory: Positive for shortness of breath. Gastrointestinal: Negative for abdominal pain, vomiting or diarrhea. Genitourinary: Negative for dysuria. Musculoskeletal: Negative for back pain. Skin: Negative for rash. Neurological: Negative for headaches, weakness or numbness. 10 point ROS negative except as marked above and in HPI. Physical Exam - Vital signs Vitals: Temp Pulse Resp BP Pulse Ox 98.3 F 105 H 26 H 145/97 H 95 03/20/17 18:32 03/20/17 18:32 03/20/17 18:32 03/20/17 18:32 03/20/17 18:32 Interpretation: Tachycardic, Tachypneic Notes: PHYSICAL EXAMINATION: GENERAL: Ill in appearance, in moderate respiratory distress HEAD: Atraumatic, normocephalic. EYES: Pupils equal round and reactive to light, extraocular movements intact, sclera anicteric, conjunctiva are normal. ENT: nares patent, oropharynx clear without exudates. Moderately dry mucous membranes. NECK: Normal range of motion, supple without lymphadenopathy LUNGS: Diminished air movement in all lung duong particularly at the bases. Moderate respiratory distress initial tachypnea of 27 breaths per minute. Diffuse expiratory wheezing with prolonged expiratory phase. HEART: Regular tachycardia without murmurs ABDOMEN: Soft, nontender, normoactive bowel sounds. No guarding, no rebound. No masses appreciated. EXTREMITIES: Normal range of motion, no pitting or edema. No cyanosis. NEUROLOGICAL: No focal neurological deficits. Moves all extremities spontaneously and on command. PSYCH: Normal mood, normal affect. SKIN: Warm, Dry, normal turgor, no rashes or lesions noted. Course - Re-evaluation Re-evalutation: 03/20/17 19:41 Patient arrives in moderate respiratory distress, tachypneic to 27 breaths per minute on initial assessment with diffuse expiratory wheezing in all lung duong as well as diminished air movement. Patient is talking in 3-4 word sentences. He does have a history of asthma and continues to smoke. Initial triage vitals showed hypoxemia to 89% and patient does not normally have an oxygen requirement. He was immediately placed on continuous albuterol ipratropium nebulizers. IV access has been established he will be given steroids as well as IV magnesium and fluids. Labs will be obtained and a chest x-ray will be obtained. Patient is critically ill at this time and his respiratory distress and is at risk for decompensation. He will require frequent reassessments. 03/20/17 20:31 On reassessment, patient is now becoming somewhat somnolent, falling asleep during conversation with me. When I walked in the room patient had been sleeping and his saturation was 84% on nonrebreather with continuous nebulizers. Venous blood gas does show a respiratory acidosis. Patient has been placed on BiPAP and will continue to reassess frequently. Given that the venous blood gas pH is only minimally diminished relative to the elevation of PCO2 I suspect that this is mostly a chronic picture with some acute worsening. Will continue to reassess. 03/20/17 21:53 Patient is clinically much improved now, awake, talking, no longer somnolent. I discussed with Dr. Perez who will admit. - Vital Signs Vital signs: Temp Pulse Resp BP Pulse Ox 97.5 F 103 H 20 156/108 H 94 03/21/17 00:26 03/21/17 00:26 03/21/17 00:26 03/21/17 00:26 03/21/17 00:26 - Laboratory Result Diagrams: 03/20/17 19:34 03/20/17 19:34 Laboratory results interpreted by me: 03/20/17 03/20/17 03/20/17 19:34 19:34 19:34 MCHC 31.4 L RDW 15.0 H Monocytes % 13.8 H Eosinophils % 6.3 H VBG pH 7.26 L VBG pCO2 82.9 H* VBG HCO3 36.2 H Carbon Dioxide 36 H - Diagnostic Test Radiology reviewed: Image reviewed, Reports reviewed Radiology results interpreted by me: 03/20/17 20:39 Chest x-ray: No acute infiltrate or pneumothorax - EKG Interpretation by Me Additional EKG results interpreted by me: 03/20/17 20:39 Sinus tachycardia. Rate 102. No ST elevation or depression. QTC is 449. Critical Care Note - Critical Care Note Total time excluding time spent on procedures (mins): 40 Comments: Critical care time spent obtaining history from patient or surrogate, discussions with consultants, development of treatment plan with patient or surrogate, evaluation of patient's response to treatment, examination of patient , ordering and performing treatments and interventions, ordering and review of laboratory studies, re-evaluation of patient's condition, ordering and review of radiographic studies and review of old charts Discharge - Discharge Clinical Impression: Acute hypoxemic respiratory failure, Respiratory distress Respiratory failure Qualifiers: Chronicity: acute Respiratory failure complication: hypoxia and hypercapnia Qualified Code(s): J96.01 - Acute respiratory failure with hypoxia Condition: Fair Disposition: ADMITTED INPATIENT Admitting Provider: Aleksandar Perez Unit Admitted: Telemetry
[2017-03-20 19:45] LABS: ABSOLUTE BASOPHILS # (AUTO) 0.1 10^3/uL (0.0-0.2); ABSOLUTE EOSINOPHILS # (AUTO) 0.3 10^3/uL (0.0-0.6); ABSOLUTE LYMPHOCYTES (AUTO) 1.2 10^3/uL (0.5-4.7); ABSOLUTE MONOCYTES (AUTO) 0.7 10^3/uL (0.1-1.4); EOSINOPHILS % (AUTO) 6.3 % (0-6); HEMATOCRIT 47.5 % (37.9-51.0); HEMOGLOBIN 14.9 g/dL (13.5-17.0); HGB HCT DIFFERENCE -2.8; LYMPHOCYTES % (AUTO) 21.9 % (13-45); MEAN CORPUSCULAR HEMOGLOBIN 28.8 pg (27.0-33.4); MEAN CORPUSCULAR HGB CONC 31.4 g/dL (32.0-36.0); MEAN CORPUSCULAR VOLUME 92 fl (80-97); MONOCYTES % (AUTO) 13.8 % (3-13); RED BLOOD COUNT 5.17 10^6/uL (4.35-5.55); WHITE BLOOD COUNT 5.3 10^3/uL (4.0-10.5)
[2017-03-20 19:47] LABS: VENOUS BLOOD BASE EXCESS 5.6 mmol/L; VENOUS BLOOD HCO3 36.2 mmol/L (20-32); VENOUS BLOOD PH 7.26 (7.30-7.42)
[2017-03-20 19:58] LABS: VENOUS BLOOD PCO2 82.9 mmHg (35-63)
[2017-03-20 19:59] LABS: ALANINE AMINOTRANSFERASE 30 U/L (21-72); ALKALINE PHOSPHATASE 86 U/L (38-126); ANION GAP 8 (5-19); ASPARTATE AMINO TRANSFERASE 35 U/L (17-59); BILIRUBIN,DIRECT 0.3 mg/dL (0.0-0.4); BILIRUBIN,TOTAL 0.5 mg/dL (0.2-1.3); BLOOD UREA NITROGEN 16 mg/dL (7-20); CARBON DIOXIDE 36 mmol/L (22-30); CHLORIDE 99 mmol/L (98-107); CREATININE RESULT 1.16 mg/dL (0.52-1.25); GLUCOSE 99 mg/dL (75-110); POTASSIUM 4.6 mmol/L (3.6-5.0); SODIUM 142.9 mmol/L (137-145); TOTAL PROTEIN 7.6 g/dL (6.3-8.2)
--- NOTE | 2017-03-20 20:01 | RADIOLOGY REPORT (SQ) ---
EXAM DESCRIPTION: CHEST SINGLE VIEW COMPLETED DATE/TIME: 03/20/2017 7:47 pm REASON FOR STUDY: sob, cough COMPARISON: 11/03/2016 NUMBER OF VIEWS: One view. TECHNIQUE: Single frontal radiographic view of the chest acquired. LIMITATIONS: None. FINDINGS: LUNGS AND PLEURA: No consolidation, masses or pneumothorax. No pleural effusion. MEDIASTINUM AND HILAR STRUCTURES: Stable. HEART AND VASCULAR STRUCTURES: Heart enlarged without failure. Normal vasculature. BONES: No acute findings. HARDWARE: None in the chest. OTHER: No other significant finding. IMPRESSION: No acute finding. TECHNICAL DOCUMENTATION: JOB ID: [id number] [employer]- All Rights Reserved
[2017-03-20] MEDS: MAGNESIUM SULFATE/D5W 100 ML IV SCH (20:04)
--- NOTE | 2017-03-20 21:08 | EKG REPORT ---
SEVERITY:- ABNORMAL ECG - SINUS TACHYCARDIA PROBABLE LEFT ATRIAL ABNORMALITY LEFT AXIS DEVIATION CONSIDER ANTERIOR INFARCT : Confirmed by: Mateusz Kathleen MD 20-Mar-2017 21:08:12
[2017-03-20] MEDS ORDERED: ACETAMINOPHEN 325 MG TABLET PO PRN (21:50)
[2017-03-21] MEDS: HEPARIN SOD (PORCINE) 5,000 UNIT/ML 1 ML SYRINGE SUBCUT SCH ×4 (00:42→20:21)
[2017-03-21] MEDS: MAGNESIUM SULFATE/D5W 100 ML IV SCH (00:42)
--- NOTE | 2017-03-21 00:42 | PDOC H&P ---
History of Present Illness Admission Date/PCP: 03/20/17 21:50 Patient complains of: Altered mental status History of Present Illness: JERMAINE FIGUEROA is a 47 year old male with a past medical history of morbid obesity and obstructive sleep apnea history on CPAP, tracheostomy with stoma healing. Patient has been in his usual state of health until approximately 2 weeks ago noted by his to have difficulty staying awake drooling, lethargy and delirium. In the emergency room he is obtunded and placed on BiPAP a VBG reveals a PCO2 greater than 88. The patient denies fever chills nausea vomiting chest pain or use of any medications. Past Medical History Pulmonary Medical History: Reports: Asthma, Bronchitis, Pneumonia, Respiratory Failure, Sleep Apnea Endocrine Medical History: Reports: Obesity Past Surgical History Past Surgical History: Reports: Tonsillectomy, Other - Tracheostomy Social History Information Source: Patient, Relative, [facility] Records Smoking Status: Former Smoker Frequency of Alcohol Use: None Hx Recreational Drug Use: No Drugs: None Hx Prescription Drug Abuse: No - Advance Directive Resuscitation Status: Full Code Family History Family History: Malignancy - Colon cancer Parental Family History Reviewed: Yes Children Family History Reviewed: Yes Sibling(s) Family History Reviewed.: Yes Medication/Allergy Home Medications: Azithromycin [Zithromax Tri-Matt] 500 mg PO DAILY #1 pkg 11/06/16 Guaifenesin [Mucinex Sr 600 mg Tablet.sa] 1,200 mg PO Q12 #0 tablet.sa 11/06/16 Allergies/Adverse Reactions: No Known Allergies Allergy (Verified 11/03/16 06:26) Review of Systems Constitutional: PRESENT: as per HPI, fatigue. ABSENT: anorexia, chills, fever(s ), headache(s), night sweats, weakness Eyes: ABSENT: visual disturbances Ears: ABSENT: hearing changes Cardiovascular: ABSENT: chest pain, dyspnea on exertion, edema, orthropnea, palpitations Respiratory: PRESENT: as per HPI, dyspnea. ABSENT: hemoptysis, sputum Gastrointestinal: ABSENT: abdominal pain, constipation, diarrhea, hematemesis, hematochezia, nausea, vomiting Genitourinary: ABSENT: dysuria, hematuria Musculoskeletal: ABSENT: joint swelling Integumentary: ABSENT: rash, wounds Neurological: PRESENT: confusion, other - Daytime falling asleep. ABSENT: abnormal gait, abnormal speech, dizziness, focal weakness, syncope Psychiatric: ABSENT: anxiety, depression, homidical ideation, suicidal ideation Endocrine: ABSENT: cold intolerance, heat intolerance, polydipsia, polyuria Hematologic/Lymphatic: ABSENT: easy bleeding, easy bruising Physical Exam Vital Signs: Temp Pulse Resp BP Pulse Ox 98.3 F 105 H 17 141/121 H 94 03/20/17 18:32 03/20/17 18:32 03/21/17 00:00 03/20/17 23:31 03/21/17 00:00 General appearance: PRESENT: cooperative, disheveled, morbidly obese Head exam: PRESENT: atraumatic, normocephalic Eye exam: PRESENT: conjunctiva pink, EOMI, PERRLA. ABSENT: scleral icterus Ear exam: PRESENT: normal external ear exam Mouth exam: PRESENT: moist, tongue midline Throat exam: ABSENT: post pharyngeal erythema, tonsillar erythema Neck exam: PRESENT: other. ABSENT: carotid bruit, JVD, lymphadenopathy, thyromegaly Respiratory exam: PRESENT: accessory muscle use, crackles, decreased breath sounds, prolonged expiratory phas, retraction, symmetrical. ABSENT: stridor Cardiovascular exam: PRESENT: RRR. ABSENT: diastolic murmur, rubs, systolic murmur Pulses: PRESENT: normal dorsalis pedis pul Vascular exam: PRESENT: normal capillary refill GI/Abdominal exam: PRESENT: normal bowel sounds, soft. ABSENT: distended, guarding, mass, organolmegaly, rebound, tenderness Rectal exam: PRESENT: deferred Extremities exam: PRESENT: full ROM. ABSENT: calf tenderness, clubbing, pedal edema Neurological exam: PRESENT: alert, awake, oriented to person, oriented to place , oriented to time, oriented to situation, CN II-XII grossly intact. ABSENT: motor sensory deficit Psychiatric exam: PRESENT: appropriate affect, normal mood. ABSENT: homicidal ideation, suicidal ideation Skin exam: PRESENT: dry, intact, warm. ABSENT: cyanosis, rash Results Impressions: Chest X-Ray 03/20/17 19:34 IMPRESSION: No acute finding. Assessment & Plan - Diagnosis (1) Hypercapnic respiratory failure Qualifiers: Chronicity: acute on chronic Qualified Code(s): J96.22 - Acute and chronic respiratory failure with hypercapnia Is this a current diagnosis for this admission?: YesPlan: BiPAP initiated complicated by morbid obesity will evaluate urine drug screen consider amphetamine and/or referral for bariatric surgery (2) Morbid obesity Is this a current diagnosis for this admission?: YesPlan: Evaluate TSH consider referral for bariatric surgery (3) Obstructive sleep apnea Is this a current diagnosis for this admission?: YesPlan: BiPAP consider follow-up ABG - Time Time Spent: 30 to 50 Minutes - Inpatient Certification Medical Necessity: Need Close Monitoring Due to Risk of Patient Decompensation
[2017-03-21] MEDS ORDERED: HYDRALAZINE HCL INJ/PF 20 MG/1 ML SDV IV PRN (02:01)
[2017-03-21] MEDS: IPRATROPIUM/ALBUTEROL 0.5-2.5 MG/3 ML AMPUL NEB SCH ×2 (02:01→08:30)
[2017-03-21] MEDS ORDERED: LOSARTAN POTASSIUM 50 MG TABLET PO ONE (02:15)
[2017-03-21 03:54] LABS: URINE BARBITURATES SCREEN NEGATIVE; URINE METHADONE SCREEN NEGATIVE; URINE OPIATES LOW NEGATIVE; URINE PHENCYCLIDINE SCREEN NEGATIVE
[2017-03-21 06:44] LABS: ABSOLUTE LYMPHOCYTES (AUTO) 0.8 10^3/uL (0.5-4.7); ABSOLUTE MONOCYTES (AUTO) 0.2 10^3/uL (0.1-1.4); ABSOLUTE NEUT (AUTO) 4.6 10^3/uL (1.7-8.2); BASOPHILS % (AUTO) 0.2 % (0-2); HEMATOCRIT 48.7 % (37.9-51.0); HEMOGLOBIN 15.4 g/dL (13.5-17.0); HGB HCT DIFFERENCE -2.5; LYMPHOCYTES % (AUTO) 14.1 % (13-45); MEAN CORPUSCULAR HEMOGLOBIN 28.9 pg (27.0-33.4); MEAN CORPUSCULAR HGB CONC 31.5 g/dL (32.0-36.0); MEAN CORPUSCULAR VOLUME 92 fl (80-97); MONOCYTES % (AUTO) 2.7 % (3-13); RED BLOOD COUNT 5.32 10^6/uL (4.35-5.55); RED CELL DISTRIBUTION WIDTH 14.8 % (11.5-14.0); WHITE BLOOD COUNT 5.5 10^3/uL (4.0-10.5)
[2017-03-21 06:55] LABS: ANION GAP 7 (5-19); BLOOD UREA NITROGEN 13 mg/dL (7-20); CALCIUM 8.9 mg/dL (8.4-10.2); CARBON DIOXIDE 35 mmol/L (22-30); CHLORIDE 99 mmol/L (98-107); CREATININE RESULT 0.93 mg/dL (0.52-1.25); GLUCOSE 144 mg/dL (75-110); SODIUM 140.8 mmol/L (137-145)
[2017-03-21 07:36] LABS: POTASSIUM 5.7 mmol/L (3.6-5.0)
[2017-03-21] MEDS ORDERED: ALBUTEROL SULFATE 0.083% NEB 2.5 MG/3 ML AMPUL NEB PRN ×2 (08:15→15:31)
[2017-03-21] MEDS ORDERED: NORMAL SALINE 1000 ML 1,000 ML IV PRN (08:26)
--- NOTE | 2017-03-21 09:06 | PROGRESS NOTE E ---
Progress Note NAME: JERMAINE FIGUEROA : 1970 AGE: 47Y DATE: 03/21/2017 ROOM: 415 SUBJECTIVE: The patient is lying in bed. He is still a little groggy this morning. The BiPAP is in place. Still awaiting repeat labs. The patient has had no episodes of vomiting nor diarrhea. The patient denies any shortness of breath, dizziness, chest pain. No fevers, chills, heart palpitations. The patient denies use of a CPAP or BiPAP at home and denies having a mortgage coordinator, and the patient does not voice any other concerns at this time. REVIEW OF SYSTEMS: Rest of review of systems negative. MEDICATIONS: Medications have been reviewed. OBJECTIVE: GENERAL: The patient is a 47-year-old -Samoan male who will awaken, but he is groggy, does not appear to be in any acute distress. VITAL SIGNS: Temperature is 97.5, pulse 97, respirations 16, blood pressure is 156/108, oxygen saturation is 95% on 30% FiO2 by BiPAP. SKIN: Warm and dry. No rash. She is not diaphoretic. HEENT: Pupils equal, round, and reactive to light and accommodation. Conjunctiva pink. No JVP. BiPAP mask is in place. CARDIOVASCULAR SYSTEM: Heart is regular. There is no murmur or rub. CHEST: Patient does have expiratory wheezes noted in upper lung duong, symmetrical, unlabored. ABDOMEN: Soft, nontender, obese, nondistended. EXTREMITIES: No clubbing, cyanosis, edema. PSYCHIATRIC: Appropriate affect, pleasant mood. Just overall sleepy. DIAGNOSTICS: Lab values are as follows: Hematology obtained on 03/21/2017: WBCs are 5.5, hemoglobin is 15.4, hematocrit is 48.7, platelet count is 231,000. Chemistry obtained on 03/21/2017: Sodium is 140, potassium 5.7, chloride is 99, carbon dioxide 35, BUN 13, creatinine is 0.93, glucose 144, calcium is 8.9. Blood cultures obtained on 03/20/2017 are pending. IMPRESSION AND PLAN: 1. ACUTE, MOST LIKELY CHRONIC HYPERCAPNIC RESPIRATORY FAILURE. The patient does not wear any machine at home. Will consult Pulmonology for input with this. Will continue BiPAP for now. Repeat blood gas now as well as in the a.m. and follow. 2. WHEEZING. The patient most likely has an obstructive lung process. Will add steroids as well as the patient states that he feels he has mucus in his chest. Will give a trial of Mucinex as well. Add Singulair and follow. 3. HYPERTENSION. Will continue p.r.n. medications and follow. 4. HYPERKALEMIA, RELATIVELY MILD. This appeared to have occurred overnight, may be due to nebulizer. Will hold ARB and give a liter of saline, repeat chemistries, and follow. 5. MORBID OBESITY WITH A BMI OF 46. Will encourage weight reduction. DISPOSITION: The patient is a FULL CODE. Pending patient's symptomatology and diagnostic findings, will re-evaluate in the a.m. Time spent on this followup including assessment, plan, physical examination, patient education, and review of records is 35 minutes. DICTATING PHYSICIAN: JONATHAN BURGOS NP [id number] PHY#: [id number] ID: [id number] JOB#: [id number] ACCT: [id number] cc: >
[2017-03-21 09:10] LABS: VENOUS BLOOD HCO3 34.9 mmol/L (20-32); VENOUS BLOOD PH 7.24 (7.30-7.42)
[2017-03-21 09:17] LABS: VENOUS BLOOD PCO2 83.2 mmHg (35-63)
[2017-03-21] MEDS: GUAIFENESIN 600 MG TABLET.SA PO SCH ×2 (09:52→20:20)
[2017-03-21] MEDS: DOCUSATE SODIUM 100 MG CAPSULE PO SCH ×2 (09:53→17:00)
[2017-03-21] MEDS: PREDNISONE 20 MG TABLET PO SCH ×2 (09:54→17:00)
[2017-03-21] MEDS ORDERED: LOSARTAN POTASSIUM 50 MG TABLET PO SCH (10:00)
[2017-03-21] MEDS: FLUTICASONE NASAL SPRAY 50 MCG/SPRY 120 SPRAY/16 GM NASL SCH ×2 (10:55→20:20)
[2017-03-21] MEDS ORDERED: FLUTICASONE/SALMETEROL DISKUS 500-50 MCG/DOSE IH ONE (19:45)
[2017-03-21] MEDS ORDERED: TIOTROPIUM BROMIDE DPI 5 CAP/KIT (18 MCG/CAP) IH ONE (19:45)
[2017-03-21 19:46] LABS: ARTERIAL BLOOD BASE EXCESS 6.8 mmol/L; ARTERIAL BLOOD O2 SATURATION 96.1 % (94-98)
--- NOTE | 2017-03-21 19:48 | CONSULTATION REPORT E ---
Consultation Report NAME: JERMAINE FIGUEROA : 1970 AGE: 47Y DATE: 03/21/2017 415 A TO: ORAL PIZARRO M.D. FROM: JEAN CLAUDE GRIJALVA M.D. Requesting Physician HISTORY OF PRESENT ILLNESS: The patient is a 47-year-old -[place] male with a past medical history of morbid obesity, obstructive sleep apnea on CPAP, tracheostomy and stoma healing. The patient has been doing okay until about 2 weeks ago when patient started getting more short of breath with difficulty staying awake, drooling, and lethargy and delirium. The patient was brought to the emergency room last night with a low oxygen saturation and eventually placed on BiPAP. Currently the patient feels a little bit better. He is more awake, conscious. The patient does not remember what happened to him when he was brought in yesterday. He claimed that his does not understand about what he was talking, but he knows what he was talking about. Denies any chest pain. Denies any increased coughing or purulent sputum production, hemoptysis, or chest pain. Denies any CPAP therapy use, however, on medical records the patient has a history of sleep apnea on CPAP therapy. PAST MEDICAL HISTORY: 1. Asthma. 2. Bronchitis. 3. History of pneumonia. 4. Respiratory failure. 5. Sleep apnea. 6. Endocrine obesity. PAST SURGICAL HISTORY: 1. Tracheostomy. 2. Tonsillectomy. SOCIAL HISTORY: The patient is a former smoker, but patient claimed that he still smokes about 4 cigars a day. 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 Denies any alcohol abuse or illicit drug use. ALLERGIES: No known drug allergies. MEDICATIONS: The patient is on Mucinex and Zithromax at home. REVIEW OF SYSTEMS: CONSTITUTIONAL: No fever. No chills. No headache. No visual changes or hearing changes. CARDIORESPIRATORY: Denies any chest pain and complained about increased coughing and shortness of breath. GASTROINTESTINAL: Denies any nausea, vomiting, or diarrhea. GENITOURINARY: No dysuria or hematuria. PHYSICAL EXAMINATION: GENERAL: The patient is awake, alert, coherent, oriented x3. VITAL SIGNS: With a temperature of 99.3 with a temperature maximum of 99.3, blood pressure is 128/81, heart rate of 108, respiratory rate of 19, and currently on BiPAP with BiPAP of 14/7, respiratory rate of 10 and FIO2 at 40% with saturation at 97%. FIO2 decreased to 35%. EYES: No jaundice or pallor. EARS, NOSE, AND THROAT: No ear drainage. No nasal discharge. HEAD AND NECK: No scalp swelling or tenderness. Neck supple. CHEST AND LUNGS: No wheezing. No rhonchi. No coarse crackles. CARDIOVASCULAR: S1, S2 distinct. No murmur. Regular rhythm. ABDOMEN: Flabby, positive bowel sounds, soft, nondistended, nontender. EXTREMITIES: No joint swelling. No cellulitis. LABORATORY: CBC done today showed white count 5.5, hemoglobin 15.4, hematocrit 48.7, platelet count is 221,000. Chemistry showed sodium 140.8, potassium 5.7, chloride 99, CO2 is 35, BUN 13, creatinine 0.93, glucose 144, calcium is 8.9. The venous blood gas showed pH 7.04, pCO2 83.2, bicarbonate is 34.9. Blood cultures are pending. Chest x-ray showed mild cardiomegaly with no pleural effusion and no signs of consolidation or pneumonia. ASSESSMENT: 1. Acute respiratory failure requiring BiPAP therapy, appears to be improving, associated altered mental status on admission. 2. Altered mental status has improved. 3. History of asthma. 4. History of previous smoking. PLAN/RECOMMENDATIONS: 1. We will start the patient on Advair 500 mcg space inhaler 1 puff b.i.d. 2. We will start Spiriva inhaler 1 capsule to be inhaled once daily. 3. Continue BiPAP therapy 14/7, rate of 10, and FIO2 35%. Titrate FIO2 to keep saturation 91% to 95%. 4. Continue bipap therapy and ABG tonight. Please call me for the results and will review tomorrow. DICTATING PHYSICIAN: ORAL PIZARRO MD,DEN,MPH [id number] [id number] PHY#: [id number] ID: [id number] JOB#: [id number] ACCT: [id number] cc:ORAL PIZARRO M.D. > MTDD
[2017-03-21] MEDS: ALBUTEROL SULFATE 0.083% NEB 2.5 MG/3 ML AMPUL NEB SCH (20:05)
[2017-03-21] MEDS: MONTELUKAST SODIUM 10 MG TABLET PO SCH (20:21)
[2017-03-21 23:28] LABS: ARTERIAL BLOOD BASE EXCESS 7.5 mmol/L; ARTERIAL BLOOD O2 SATURATION 97.8 % (94-98)
[2017-03-22] MEDS: ALBUTEROL SULFATE 0.083% NEB 2.5 MG/3 ML AMPUL NEB SCH ×4 (01:40→20:42)
[2017-03-22 04:52] LABS: VENOUS BLOOD BASE EXCESS 7.6 mmol/L; VENOUS BLOOD HCO3 38.1 mmol/L (20-32); VENOUS BLOOD PH 7.28 (7.30-7.42)
[2017-03-22 04:57] LABS: VENOUS BLOOD PCO2 82.6 mmHg (35-63)
[2017-03-22 05:09] LABS: ANION GAP 5 (5-19); BLOOD UREA NITROGEN 20 mg/dL (7-20); CARBON DIOXIDE 33 mmol/L (22-30); CHLORIDE 98 mmol/L (98-107); CREATININE RESULT 0.92 mg/dL (0.52-1.25); GLUCOSE 134 mg/dL (75-110); MAGNESIUM 2.2 mg/dL (1.6-2.3); POTASSIUM 5.8 mmol/L (3.6-5.0); SODIUM 136.3 mmol/L (137-145)
[2017-03-22] MEDS: HEPARIN SOD (PORCINE) 5,000 UNIT/ML 1 ML SYRINGE SUBCUT SCH ×3 (06:02→21:15)
[2017-03-22] MEDS ORDERED: SODIUM POLYSTYRENE SULFONATE 15 GM/60 ML PO ONE (09:00)
--- NOTE | 2017-03-22 09:19 | PROGRESS NOTE E ---
Progress Note NAME: JERMAINE FIGUEROA : 1970 AGE: 47Y DATE: 03/22/2017 ROOM: 408 SUBJECTIVE: The patient is lying in bed. He states he feels a little better today, that his breathing is okay. The patient is much more awake and alert than yesterday but still a little groggy for me. He does not appear to be in any acute distress. Do appreciate Dr. Dunbar with pulmonology input with this. The patient still remains hypercapnic in spite of overnight adjustments. The patient does not voice any other concerns at this time. He denies any cough or sputum production. Does admit to being cold but denies fevers. REVIEW OF SYSTEMS: Rest of the review of systems negative. MEDICATIONS: Have been reviewed. PHYSICAL EXAMINATION: GENERAL: The patient is a 47-year-old -[place] African male who is awake and alert. He is oriented to person, place, time, and situation. He is just a little delayed. He does not appear to be in any acute distress. VITAL SIGNS: Temperature 97.9, pulse 79, respirations 15, blood pressure 109/61, oxygen saturation is 93% on 40% FiO2. SKIN: Warm and dry. No rash. He is not diaphoretic. HEENT: Pupils equal, round, reactive to light and accommodation. Conjunctivae are pink. BiPAP mask is securely in place. CARDIOVASCULAR: Heart is regular. There is no murmur or rub. CHEST: Diminished throughout to auscultation, symmetrical, unlabored. ABDOMEN: Obese, soft. Bowel sounds are present. BACK: No CVA tenderness or sacral edema. EXTREMITIES: No clubbing, cyanosis, edema. PSYCHIATRIC: Appropriate affect. Please mood. DIAGNOSTICS: Lab values are as follows: Hematology obtained on 03/21/2017: WBCs are 5.5, hemoglobin is 15.4, hematocrit is 48.7, platelet count is 231,000. Venous blood gas obtained on 03/22/2017: His pH is 7.28, pCO2 is 82.6, bicarb is 38.1. Chemistry obtained on 03/22/2017: Sodium is 136, potassium 5.8, chloride is 98, carbon dioxide 33, BUN 20, creatinine is 0.92, glucose 134, calcium is 9.0, magnesium is 2.2. IMPRESSION AND PLAN: 1. CHRONIC OBSTRUCTIVE PULMONARY DISEASE EXACERBATION. The patient's symptoms overall have improved. Will continue to monitor. 2. [id number] HYPERCAPNIC AND HYPOXEMIC RESPIRATORY FAILURE. The patient does not wear a CPAP or BiPAP at home. Do appreciate Pulmonology's input on this. Repeat blood gas still showed an elevated pCO2. Therefore, we will increase BiPAP setting to 16/8 from 14/8 as the patient's FiO2 is 40% and he is oxygenating at 93% on that. Will follow. 3. HYPERTENSION. Will hold the patient's ARB given his hyperkalemia but blood pressures are in a good range. 4. HYPERKALEMIA, RELATIVELY MILD. It did not seem to improve with fluids, therefore, we will continue to hold his ARB and give a dose of Kayexalate and follow. 5. MORBID OBESITY WITH A BMI OF 46. Will encourage weight reduction. DISPOSITION: The patient is a FULL CODE. Pending patient's symptomatology and diagnostic findings, will reevaluate in the a.m. Time spent on this followup including assessment, plan, physical examination, patient education, and review of records is 25 minutes. DICTATING PHYSICIAN: JONATHAN BURGOS NP [id number] PHY#: [id number] ID: [id number] JOB#: [id number] ACCT: [id number] cc: >
[2017-03-22] MEDS: DOCUSATE SODIUM 100 MG CAPSULE PO SCH ×2 (10:08→18:39)
[2017-03-22] MEDS: GUAIFENESIN 600 MG TABLET.SA PO SCH ×2 (10:08→21:15)
[2017-03-22] MEDS: PREDNISONE 20 MG TABLET PO SCH ×2 (10:08→18:40)
--- NOTE | 2017-03-22 11:53 | PROGRESS NOTE E ---
Progress Note NAME: JERMAINE FIGUEROA : 1970 AGE: 47Y DATE: 03/22/2017 ROOM: 408 SUBJECTIVE: The patient is a 47-year-old -Slov[place] male who came in with acute hypercapnic respiratory failure requiring BiPAP therapy, appeared to be feeling better, improved, more alert and awake. No fever or chills. Denies any shortness of breath or chest tightness or chest pain. Slept well last night. Repeat VBG last night on BiPAP of 16/8 and a rate of 12 showed pH of 7.29 which has improved from 7.26 earlier, pCO2 went down to 78.9 from 85.6 earlier as well, and with pO2 of 120 on FiO2 of 35%. Denies any cough or fever or nausea or vomiting. Patient tolerated his BiPAP therapy well. PHYSICAL EXAMINATION: GENERAL: The patient is awake and alert, appears to be coherent and oriented x3. VITAL SIGNS: Blood pressure of 109/61, temperature of 97.9, pulse rate of 79, respiratory rate 15, saturation 93% on BiPAP, FiO2 of 40%. EYES: No jaundice or pallor. EARS, NOSE, AND THROAT: No ear drainage. No nasal discharge. HEAD AND NECK: No scalp swelling or tenderness. Neck supple. CHEST AND LUNGS: No wheezing, no rhonchi, no coarse crackles. CARDIOVASCULAR: S1 and S2 is distinct. No rhythm. Regular rhythm. ABDOMEN: Flabby, positive bowel sounds, soft, nondistended, nontender. EXTREMITIES: No joint swelling. No cellulitis. LABORATORY: No CBC done today. Chemistry done today showed sodium of 136.3, potassium of 5.8, chloride 98, CO2 is 33, anion gap is 5, BUN is 20, creatinine 0.92, glucose is 134, calcium is 9, magnesium is 2.2. ASSESSMENT: 1. ACUTE HYPERCAPNIC RESPIRATORY FAILURE REQUIRING NONINVASIVE MECHANICAL VENTILATION. 2. COPD/ASTHMA. Currently appears to be stable and not in acute bronchospasm. 3. MORBID OBESITY. PLAN AND RECOMMENDATION: 1. We will do a chest CTA to rule out pulmonary embolism and other intrathoracic pathology causing hypercapnia. 2. We will check the ventilator *------* the BiPAP at the rate to 14. We will do a ABG in 2 hours. 3. Continue nebulizer treatments. 4. Consider decreasing prednisone to 20 mg tablet once a day. 5. We will follow patient. DICTATING PHYSICIAN: ORAL PIZARRO M.D. [id number] PHY#: [id number] ID: [id number] JOB#: [id number] ACCT: [id number] cc: > MTDD
[2017-03-22] MEDS: TIOTROPIUM BROMIDE DPI 5 CAP/KIT (18 MCG/CAP) IH SCH (13:35)
[2017-03-22] MEDS: FLUTICASONE NASAL SPRAY 50 MCG/SPRY 120 SPRAY/16 GM NASL SCH ×2 (13:36→21:14)
[2017-03-22] MEDS: FLUTICASONE/SALMETEROL DISKUS 500-50 MCG/DOSE IH SCH ×2 (13:36→21:15)
[2017-03-22 13:51] LABS: ARTERIAL BLOOD O2 SATURATION 96.6 % (94-98)
--- NOTE | 2017-03-22 14:02 | RADIOLOGY REPORT (SQ) ---
EXAM DESCRIPTION: CTA CHEST COMPLETED DATE/TIME: 03/22/2017 1:16 pm REASON FOR STUDY: SOB COMPARISON: None. TECHNIQUE: CT scan of the chest performed using helical scanning technique with dynamic intravenous contrast injection. Images reviewed with lung, soft tissue and bone windows. Reconstructed coronal and sagittal MPR images reviewed. Additional 3 dimensional post-processing performed to develop Maximal Intensity Projection images (NE P). All images stored on PACS. All CT scanners at this facility use dose modulation, iterative reconstruction, and/or weight based d osing when appropriate to reduce radiation dose to as low as reasonably achievable (ALARA). [facility]: Dose Right [facility]: CareDose [facility]: Dose Right [facility]: Teradose 4D [facility]: SiOx CONTRAST TYPE AND DOSE: contrast/concentration: Isovue 370.00 mg/ml; Total Contrast Delivered: 79.0 ml; Total Saline Delivered: 106.0 ml RENAL FUNCTION: BUN 20, creatinine 0.92 RADIATION DOSE: Up-to-date CT equipment and radiation dose reduction techniques were employed. CTDIv ol: 15.4 - 41.3 mGy. DLP: 561 mGy-cm. . LIMITATIONS: None. FINDINGS: LUNGS AND PLEURA: Minimal ground-glass opacity in the right base consistent with atelectas is. There is calcified granuloma in the right lower lobe as well. AORTA AND GREAT VESSELS: No aneurysm or dissection. HEART: No pericardial effusion. PULMONARY ARTERIES: No emboli visualized in the main pulmonary arteries or the segmental branches. HILAR AND MEDIASTINAL STRUCTURES: There are small prevascular lymph nodes. These are nonspecific. T here is mild right hilar adenopathy of unknown etiology. HARDWARE: None in the chest. UPPER ABDOMEN: No significant findings. Limited exam. THYROID AND OTHER SOFT TISSUES: No masses. No adenopathy. BONES: No acute or significant finding. 3D MIPS: Confirm above findings. OTHER: No other significant finding. IMPRESSION: 1. No pulmonary emboli. 2. Nonspecific small prevascular and right hilar lymph nodes. TECHNICAL DOCUMENTATION: JOB ID: [id number] Quality ID # [id number]: Final reports with documentation of one or more dose reduction techniques (e.g., Au tomated exposure control, adjustment of the mA and/or kV according to patient size, use of iterative reconstruction technique) 2010 [employer]- All Rights Reserved
[2017-03-22] MEDS: MONTELUKAST SODIUM 10 MG TABLET PO SCH (21:15)
[2017-03-23] MEDS: ALBUTEROL SULFATE 0.083% NEB 2.5 MG/3 ML AMPUL NEB SCH ×4 (02:09→19:37)
[2017-03-23] MEDS: HEPARIN SOD (PORCINE) 5,000 UNIT/ML 1 ML SYRINGE SUBCUT SCH ×3 (05:43→21:37)
[2017-03-23 06:21] LABS: HEMATOCRIT 47.1 % (37.9-51.0); HEMOGLOBIN 14.6 g/dL (13.5-17.0); HGB HCT DIFFERENCE -3.3; MEAN CORPUSCULAR HEMOGLOBIN 28.4 pg (27.0-33.4); MEAN CORPUSCULAR HGB CONC 30.9 g/dL (32.0-36.0); MEAN CORPUSCULAR VOLUME 92 fl (80-97); RED BLOOD COUNT 5.13 10^6/uL (4.35-5.55); RED CELL DISTRIBUTION WIDTH 14.2 % (11.5-14.0); WHITE BLOOD COUNT 8.5 10^3/uL (4.0-10.5)
[2017-03-23 06:44] LABS: VENOUS BLOOD BASE EXCESS 10.6 mmol/L; VENOUS BLOOD HCO3 40.3 mmol/L (20-32); VENOUS BLOOD PH 7.34 (7.30-7.42)
[2017-03-23 06:49] LABS: ANION GAP 8 (5-19); BLOOD UREA NITROGEN 16 mg/dL (7-20); CALCIUM 9.1 mg/dL (8.4-10.2); CARBON DIOXIDE 38 mmol/L (22-30); CHLORIDE 91 mmol/L (98-107); CREATININE RESULT 0.86 mg/dL (0.52-1.25); GLUCOSE 110 mg/dL (75-110); MAGNESIUM 2.1 mg/dL (1.6-2.3); POTASSIUM 4.7 mmol/L (3.6-5.0); SODIUM 136.8 mmol/L (137-145)
[2017-03-23 06:51] LABS: VENOUS BLOOD PCO2 77.2 mmHg (35-63)
[2017-03-23] MEDS ORDERED: SODIUM POLYSTYRENE SULFONATE 15 GM/60 ML PO ONE (09:00)
--- NOTE | 2017-03-23 09:08 | DISCHARGE SUMMARY E ---
Discharge Summary NAME: JERMAINE FIGUEROA : 1970 AGE: 47Y ADMITTED: 03/20/2017 DISCHARGED: 03/24/2017 CODE STATUS: FULL CODE. CONSULTING DOCTOR PODIATRIC MEDICINE: Dr. Dunbar DISCHARGE DIAGNOSES: 1. Chronic obstructive pulmonary disease exacerbation. 2. Robus-ql-[id number] hypercapnic and hypoxemic respiratory failure. 3. Hypertension. 4. Hyperkalemia resolved. 5. Morbid obesity with a BMI of 46. DISCHARGE MEDICATIONS: 1. Spiriva 1 capsule inhalation daily, 1 kit with 0 refills. 2. Prednisone 40 mg taper. 3. Singulair 10 mg p.o. at hour of sleep, 30 tablets with 0 refills. 4. Cozaar 50 mg p.o. daily, 30 tablets with 0 refills. 5. Advair 500/50 one puff inhalation q.12 hours, 1 inhaler with 0 refills. 6. Flonase 2 sprays nasally q.12 hours as needed. DIET: Reduced calorie. ACTIVITY: As tolerated. DIAGNOSTICS: Lab values are as follows: Hematology obtained on 03/23/2017: WBCs 8.5, hemoglobin is 14.6, hematocrit is 47.1, platelet count is 212,000. Chemistry obtained on 03/23/2017: Sodium is 136, potassium 4.7, chloride is 91, carbon dioxide 38, BUN 16, creatinine is 0.86, glucose 110, lactic acid 0.8, calcium is 9.1, magnesium is 2.1, BNP is 84, TSH is 1.53, bilirubin is 0.5, AST 35, ALT of 30, alk phos 86, total protein 7.6, albumin 4.0. Toxicology obtained on 03/21/2017 is jones negative. Venous blood gas obtained on 03/23/2017: His pH is 7.34, pCO2 is 77.2, bicarb is 40.3. That is on 35% FiO2. Comparison to a venous blood gas on 03/20/2017 revealed a pH of 7.26, pCO2 is 82.9, bicarb of 36.2. Microbiology: Blood cultures obtained on 03/20/2017 reveal no growth. Chest x-ray obtained on 03/20/2017 reveals no acute finding. CTA obtained on 03/22/2017 reveals no pulmonary emboli, nonspecific small prevascular and perihilar lymph nodes. EKG obtained on 03/20/2017 reveals sinus tachycardia with left atrial abnormality and left axis deviation. PHYSICAL EXAMINATION: GENERAL: On examination the patient is a well developed, obese, 47-year-old -Russian male who is awake, alert, and oriented to person, place, time, and situation. He is verbal and conversational. He is able to fully complete sentences. He does not appear to be in any acute distress. VITAL SIGNS: Temperature 98.4, pulse 75, respirations 18, blood pressure 120/81, oxygen saturation is 95% on BiPAP. SKIN: Warm and dry. No rash. He is not diaphoretic. HEENT: Pupils equal, round, reactive to light and accommodation. Conjunctivae are pink. No JVP. CARDIOVASCULAR: Heart is regular. There is no murmur or rub. CHEST: Symmetrical, diminished, unlabored. ABDOMEN: Soft, Obese. No area of focal tenderness. EXTREMITIES: No clubbing, cyanosis, edema. PSYCHIATRIC: Appropriate affect. Pleasant mood. HISTORY OF PRESENT ILLNESS: The patient is a 47-year-old -Russian male with a past medical history of morbid obesity with obstructive sleep apnea with previous tracheostomy with stoma healing. The patient presented to the emergency department with a chief complaint of altered mental status. The patient had been in his usual state of health until approximately 2 weeks ago when he was noted by his to have difficulty awakening and drooling with lethargy and delirium. While in the emergency department, the patient was found to be obtunded and was placed on a BiPAP and ABG revealed a pCO2 of greater than 88. The patient had not had any episodes to be noted by family of fevers, chills, nausea, vomiting, chest pain, or any new medications. The patient is not wearing a CPAP at home and apparently has not been wearing one since 2012. The patient was referred to the hospitalist for admission and management. HOSPITAL COURSE: The patient was admitted to continuous telemetry unit. The patient was on continuous BiPAP and the patient's venous blood gas did improve although his pCO2 remains elevated at 77.2. The patient is overall compensated with a normal pH and bicarb of 40 whereas on presentation the patient was significantly acidotic with a pH of 7.24 and a pCO2 of 83.2 with a max of 85.6. The patient's cognition improved significantly. The patient was ambulated and was able to tolerate ambulation without O2. The patient did have some elevation of potassium which did resolve with Kayexalate, therefore, the patient's ARB was discontinued and for this to be followed up on an outpatient basis. The patient is ready for discharge. DISCHARGE PLANNIN. The patient is advised to followup with his primary care provider within 1 week for hospital followup. Do recommend BMP and discuss options with blood pressure management. 2. The patient is to followup with Dr. Dunbar as a hospital followup within 1 week for hospital followup. Time spent on this discharge summary including assessment, plan, physical examination, patient education, and speciality collaboration is 25 minutes. DICTATING PHYSICIAN: JONATHAN BURGOS NP [id number] PHY#: [id number] ID: [id number] JOB#: [id number] ACCT: [id number] cc:JEAN CLAUDE GRIJALVA M.D., MICHAEL NP > MTDD
[2017-03-23] MEDS ORDERED: PREDNISONE 20 MG TABLET PO SCH (10:00)
[2017-03-23] MEDS: PREDNISONE 20 MG TABLET PO SCH (11:04)
[2017-03-23] MEDS: DOCUSATE SODIUM 100 MG CAPSULE PO SCH ×2 (11:05→18:02)
[2017-03-23] MEDS: GUAIFENESIN 600 MG TABLET.SA PO SCH ×2 (11:05→21:36)
[2017-03-23] MEDS: FLUTICASONE NASAL SPRAY 50 MCG/SPRY 120 SPRAY/16 GM NASL SCH ×2 (11:06→21:37)
[2017-03-23] MEDS: FLUTICASONE/SALMETEROL DISKUS 500-50 MCG/DOSE IH SCH ×2 (11:06→21:36)
[2017-03-23] MEDS: TIOTROPIUM BROMIDE DPI 5 CAP/KIT (18 MCG/CAP) IH SCH (11:07)
[2017-03-23 12:25] LABS: ARTERIAL BLOOD BASE EXCESS 12.7 mmol/L
[2017-03-23 12:51] LABS: BLOOD UREA NITROGEN 16 mg/dL (7-20); CALCIUM 9.1 mg/dL (8.4-10.2); CHLORIDE 91 mmol/L (98-107); CREATININE RESULT 0.91 mg/dL (0.52-1.25); GLUCOSE 113 mg/dL (75-110); POTASSIUM 4.5 mmol/L (3.6-5.0); SODIUM 136.1 mmol/L (137-145)
[2017-03-23 13:01] LABS: ANION GAP 7 (5-19); CARBON DIOXIDE 38 mmol/L (22-30)
[2017-03-23] MEDS: MONTELUKAST SODIUM 10 MG TABLET PO SCH (21:37)
[2017-03-24] MEDS: ALBUTEROL SULFATE 0.083% NEB 2.5 MG/3 ML AMPUL NEB SCH ×3 (01:10→13:27)
[2017-03-24] MEDS: HEPARIN SOD (PORCINE) 5,000 UNIT/ML 1 ML SYRINGE SUBCUT SCH ×2 (05:21→15:05)
--- NOTE | 2017-03-24 09:57 | PROGRESS NOTE E ---
Progress Note NAME: JERMAINE FIGUEROA : 1970 AGE: 47Y DATE: 03/23/2017 ROOM: 408 SUBJECTIVE: The patient is a 47-year-old -Vin[place]ian male who came in with acute respiratory failure requiring noninvasive mechanical ventilation and BiPAP therapy. He appeared to be improving, was taken off BiPAP this morning. He had an ABG done on 2 L nasal cannula showing a pH of 7.36, pCO2 of 36.2, and pO2 of 87.8 on 2 L. The patient tolerated the procedure well, at room at rest his saturation was 88%. The patient denies any fever, chills, increased cough or purulent sputum production. No chest pain. The patient is breathing better. He is currently taking Advair inhaler 250 mcg 2 puffs twice a day and Spiriva inhaler 1 capsule once daily. OBJECTIVE: GENERAL: The patient is awake, alert, oriented x3. VITAL SIGNS: Temperature 98.6, pulse rate of 89, blood pressure 131/69, saturation is 93% on 2 L nasal cannula. EYES: No conjunctival pallor. EARS, NOSE, AND THROAT: No ear drainage noted. No nasal discharge. HEAD AND NECK: No scalp swelling or tenderness. Neck is supple. LUNGS: No wheezing, no rhonchi, no coarse crackles. CARDIOVASCULAR: S1 and S2 is distant. Normal heart rate and rhythm. ABDOMEN: Flabby, positive bowel sounds. Soft, nondistended, nontender. EXTREMITIES: No joint swelling, no cellulitis. LABORATORY DATA: CBC done today shows a white count of 8.5, hemoglobin 14.6, hematocrit 47.1, platelet count is 212. Chemistry done today showed sodium 136.1, potassium 4.5, chloride 91, CO2 of 38, BUN 16, creatinine 0.91, glucose 113, calcium is 9.1. ABG done today at 2 L oxygen showed a pH of 7.36, pCO2 of 76.2, and pO2 is 67.8 and 92%. ASSESSMENT: 1. ACUTE RESPIRATORY FAILURE REQUIRING NONINVASIVE MECHANICAL VENTILATION OR BIPAP THERAPY. BIPAP therapy was held this morning and he did well on 2 L nasal cannula. 2. COPD/ASTHMA EXACERBATION. Appears to be stable or improving. 3. MORBID OBESITY. 4. OBESITY HYPOVENTILATION SYNDROME. 5. HYPOXEMIA. Requiring home oxygen therapy. 6. OBSTRUCTIVE SLEEP APNEA. PLAN AND RECOMMENDATION: 1. We will put the patient on BiPAP tonight 14/7 with respiratory rate of 12, 14/7 cm water pressure on FiO2 of 30% and titrate to keep oxygen saturation 91-94%. 2. Continue Advair and Spiriva inhaler. 3. The patient may go home on oxygen 2 L nasal cannula during exercise and sleep. Pulmonary clinic follow up next week. Please arrange pulmonary clinic appointment with the patient. DICTATING PHYSICIAN: ORAL PIZARRO MD,DEN,MPH [id number] PHY#: [id number] ID: [id number] JOB#: [id number] ACCT: [id number] cc: > MTDD
--- NOTE | 2017-03-24 09:59 | PROGRESS NOTE E ---
Progress Note NAME: JERMAINE FIGUEROA : 1970 AGE: 47Y DATE: 03/23/2017 ROOM: 408 SUBJECTIVE: The patient is lying in bed. The patient states that he feels much better today. He denies any nausea, vomiting, diarrhea, shortness of breath, dizziness or chest pain. No fevers or chills. The patient has been afebrile. OBJECTIVE: GENERAL: The patient is a 47-year-old -[place] male who is awake, alert, and oriented to person, place, time, and situation. He is verbal, conversational, ambulatory, does not appear to be in any acute distress. VITAL SIGNS: Temperature is 99.0, pulse 85, respirations 15, blood pressure 131/89, oxygen saturation 99% on BiPAP. SKIN: Warm and dry. No rash, not diaphoretic. HEENT: Pupils are equal, round, reactive to light and accommodation. Conjunctivae pink. No jugular venous pressure. CARDIOVASCULAR: Heart is regular with no murmur or rub. CHEST: Clear, symmetrical, unlabored. ABDOMEN: Non-tender BACK: No CVA tenderness or sacral edema. EXTREMITIES: No clubbing, cyanosis, edema. PSYCHIATRIC: Appropriate affect, pleasant mood. DIAGNOSTICS: Lab values are as follows. Hematology obtained on 03/23/2017: WBCs are 8.5, hemoglobin is 14.6, hematocrit is 47.1, platelet count is 212,000. Chemistry obtained on 03/23/2017: Sodium is 136, potassium 4.5, chloride is 91, carbon dioxide. ABG obtained on 03/23/2017 has a pH of 7.36, PCO2 is 76.2, PO2 is 67.8, bicarb is 42.2. IMPRESSION AND PLAN: 1. CHRONIC OBSTRUCTIVE PULMONARY DISEASE EXACERBATION. Overall the patient's symptoms have improved. Will continue to titrate steroids and follow. 2. ACUTE ON CHRONIC HYPERCAPNIC AND HYPOXEMIC RESPIRATORY FAILURE. The patient does not wear CPAP or BiPAP at home. Do appreciate Pulmonology input on this. Will have the patient ambulate and check oxygen saturations and document accordingly. The patient will follow. 3. HYPERTENSION. Will continue to hold the patient's ARB given his hyperkalemia but blood pressures overall have improved. DISPOSITION: THE PATIENT IS A FULL CODE. Pending the patient's symptomatology and diagnostic findings, will re-evaluate in the a.m. Time spent on this followup, including assessment/plan, physical examination, patient education, and review of records, is 25 minutes. DICTATING PHYSICIAN: JONATHAN BURGOS NP [id number] PHY#: [id number] ID: [id number] JOB#: [id number] ACCT: [id number] cc: > MTDD
[2017-03-24] MEDS: GUAIFENESIN 600 MG TABLET.SA PO SCH (11:59)
[2017-03-24] MEDS: PREDNISONE 20 MG TABLET PO SCH (11:59)
[2017-03-24] MEDS: DOCUSATE SODIUM 100 MG CAPSULE PO SCH (11:59)
[2017-03-24] MEDS: FLUTICASONE NASAL SPRAY 50 MCG/SPRY 120 SPRAY/16 GM NASL SCH (12:00)
[2017-03-24] MEDS: FLUTICASONE/SALMETEROL DISKUS 500-50 MCG/DOSE IH SCH (12:00)
[2017-03-24] MEDS: TIOTROPIUM BROMIDE DPI 5 CAP/KIT (18 MCG/CAP) IH SCH (12:01)
[2017-03-24 16:16] VITALS: BP 124/72
== END 2017-03-24 17:17 | disposition home or self-care (01) | DRG 189 ==
LOC: ER 18:29 → EH 21:50 → UNDOADMIN 22:18 → 4N 03-21 00:22
PROVIDERS: ADMIT Internal Medicine; ATTEND Internal Medicine
PROC: 5A09457 Assistance with Respiratory Ventilation, 24-96 Consecutive Hours, Continuous Positive Airway Pressure (ICD-10-PCS; principal; 2017-03-20)
DX: J96.22 Acute and chronic respiratory failure with hypercapnia (principal); J44.1 Chronic obstructive pulmonary disease with (acute) exacerbation; Z68.42 Body mass index [BMI] 45.0-49.9, adult; J96.21 Acute and chronic respiratory failure with hypoxia; E87.5 Hyperkalemia; G47.33 Obstructive sleep apnea (adult) (pediatric); I10 Essential (primary) hypertension; E66.01 Morbid (severe) obesity due to excess calories; Z79.899 Other long term (current) drug therapy; F17.290 Nicotine dependence, other tobacco product, uncomplicated
CPT/HCPCS: 36415; 36600; 71010; 71275; 80048; 80053; 80307; 82803; 83605; 83735; 83880; 84443; 85025; 85027; 87040; 93005; 93010; 94640; 94660; 94761; 94762; 96365; 96375; 99291; J1644; J2930; J3475; J3490; J7030; J7512; J7620

== ENCOUNTER 2017-11-19 14:43 | Emergency (ER) | payer OTHER, BC ==
[2017-11-19] MEDS ORDERED: IBUPROFEN 800 MG TABLET PO ONE (17:35)
--- NOTE | 2017-11-19 17:37 | ER Document Report ---
ED Fall - General Chief Complaint: Fall Injury Stated Complaint: NECK,BACK PAIN Time Seen by Provider: 11/19/17 17:22 Mode of Arrival: Ambulatory Information source: Patient Notes: 47-year-old male presented to ED for complaint of pain to his head back and neck after he tripped and fell this morning landing on his back. He states he was walking out of the freezer at the [facility] and some plate raised up tripping him and he fell flat on his back. He states he is took some tramadol that he had leftover at home which helped him somebody is still having pain and was like to be checked out. He states that his fellow employees said that he might have lost consciousness. TRAVEL OUTSIDE OF THE [place] IN LAST 30 DAYS: No - HPI Occurred: This morning Where: Work Context: Tripped Associated symptoms: Lost consciousness - States that his fellow employee that he might have passed out Location of injury/pain: Back, Head, Neck Quality of pain: Sharp Severity: Moderate Pain Level: 3 - Related data Allergies/Adverse Reactions: No Known Allergies Allergy (Verified 11/03/16 06:26) Past Medical History - General Information source: Patient - Social History Smoking Status: Current Every Day Smoker Cigarette use (# per day): Yes - 3 cigars a day Smoking Education Provided: Yes - 4 minutes Frequency of alcohol use: None Drug Abuse: None Occupation: [employer] Lives with: Family Family History: Arthritis, CVA, Hyperlipidemia, Hypertension, Malignancy - Colon cancer. denies: CAD, COPD, DM, Thyroid Disfunction Patient has suicidal ideation: No Patient has homicidal ideation: No Pulmonary Medical History: Reports: Hx Asthma, Hx Bronchitis, Hx Pneumonia, Hx Respiratory Failure, Hx Sleep Apnea EENT Medical History: Reports: None Neurological Medical History: Reports: None Endocrine Medical History: Reports: None Renal/ Medical History: Reports: None Malignancy Medical History: Reports None GI Medical History: Reports: None Musculoskeltal Medical History: Reports Hx Musculoskeletal Deformity, Reports Hx Musculoskeletal Trauma Skin Medical History: Reports None Psychiatric Medical History: Reports: None Traumatic Medical History: Reports: None Infectious Medical History: Reports: None Past Surgical History: Reports: Hx Adenoidectomy, Hx Oral Surgery - Clipped his uvula, Hx Tonsillectomy, Other - Tracheostomy - Immunizations Hx Diphtheria, Pertussis, Tetanus Vaccination: Yes Review of Systems - Review of Systems Constitutional: No symptoms reported EENT: No symptoms reported Cardiovascular: No symptoms reported Respiratory: No symptoms reported Gastrointestinal: No symptoms reported Genitourinary: No symptoms reported Male Genitourinary: No symptoms reported Musculoskeletal: Back pain, Muscle pain, Muscle stiffness, Neck pain Skin: No symptoms reported Hematologic/Lymphatic: No symptoms reported Neurological/Psychological: No symptoms reported -: Yes All other systems reviewed and negative Physical Exam - Vital signs Vitals: Temp Pulse Resp BP Pulse Ox 98.6 F 93 24 H 140/86 H 91 L 11/19/17 15:51 11/19/17 15:51 11/19/17 15:51 11/19/17 15:51 11/19/17 15:51 Interpretation: Normal - General General appearance: Appears well, Alert - HEENT Head: Normocephalic, Atraumatic Eyes: Normal Pupils: PERRL - Respiratory Respiratory status: No respiratory distress Chest status: Nontender Breath sounds: Normal Chest palpation: Normal - Cardiovascular Rhythm: Regular Heart sounds: Normal auscultation Murmur: No - Abdominal Inspection: Normal Distension: No distension Bowel sounds: Normal Tenderness: Nontender Organomegaly: No organomegaly - Back Back: Normal, Tender, Vertebra tenderness. No: Deformity/step-off, CVA tenderness, Scars, Scoliosis, Wounds - Extremities General upper extremity: Normal inspection, Nontender, Normal color, Normal ROM , Normal temperature General lower extremity: Normal inspection, Nontender, Normal color, Normal ROM , Normal temperature, Normal weight bearing. No: Royce's sign - Neurological Neuro grossly intact: Yes Cognition: Normal Orientation: AAOx4 Eveline Coma Scale Eye Opening: Spontaneous [place] Coma Scale Verbal: Oriented [place]veline Coma Scale Motor: Obeys Commands [place] Coma Scale Total: 15 Speech: Normal Motor strength normal: LUE, RUE, LLE, RLE Sensory: Normal - Psychological Associated symptoms: Normal affect, Normal mood - Skin Skin Temperature: Warm Skin Moisture: Dry Skin Color: Normal Course - Re-evaluation Re-evalutation: 11/19/17 18:58 Patient had pain to the head neck and back after falling backwards this morning at work. His CT and x-ray is negative. He did not have any signs or symptoms of cauda equina, and no loss of control of bowel bladder, no loss of sensation to the legs no loss control of the legs and no saddle anesthesia. He is alert and oriented able to walk with the even steady gait. His pupils are equal react to light and speech is in full sentences. He is alert and oriented. He was discharged home with prescription for Flexeril. He has blood pressure was elevated and he was instructed to follow-up with his primary doctor to get this under control. - Vital Signs Vital signs: Temp Pulse Resp BP Pulse Ox 98.6 F 93 24 H 140/86 H 91 L 11/19/17 15:51 11/19/17 15:51 11/19/17 15:51 11/19/17 15:51 11/19/17 15:51 - Diagnostic Test Radiology reviewed: Image reviewed, Reports reviewed Discharge - Discharge Clinical Impression: Fall Qualifiers: Encounter type: initial encounter Qualified Code(s): W19.XXXA - Unspecified fall, initial encounter Head injury Qualifiers: Encounter type: initial encounter Qualified Code(s): S09.90XA - Unspecified injury of head, initial encounter Cervical strain Qualifiers: Encounter type: initial encounter Qualified Code(s): S16.1XXA - Strain of muscle, fascia and tendon at neck level, initial encounter Low back pain Qualifiers: Chronicity: acute Back pain laterality: bilateral Sciatica presence: without sciatica Qualified Code(s): M54.5 - Low back pain HTN (hypertension) Qualifiers: Hypertension type: unspecified Qualified Code(s): I10 - Essential (primary) hypertension Condition: Stable Disposition: HOME, SELF-CARE Instructions: Family Physicians / Practices, Range of Motion Exercises ([facility]), Exercise Program for the Shoulder ([facility]), Stretching Exercises for the Back ([facility]) Additional Instructions: HEAD INJURY PRECAUTIONS: At this point, there is no evidence that your head injury is serious. Observation is necessary, however. Take only clear liquids for the first few hours, unless told otherwise by the doctor. If no pain medication was prescribed, you may take acetaminophen according to the directions on the bottle. Do not take any medication that may alter your level of alertness (unless you've discussed it with the doctor first) . Limit activity for the first 24 hours. Bed rest is best. During the first 24 hours, check to see approximately every two to three hours that the patient is easily arousable, responds normally, and can perform common tasks such as walking without difficulty. Contact your doctor or go to the hospital if any of the following things occur: Persistent vomiting, difficulty in arousing the patient, worsening or continued headache, or failure to improve as expected. Head injuries can cause symptoms that persist for a few days or even a few weeks. NECK INJURY (CERVICAL STRAIN): You have a neck strain. This is an injury to the muscles and ligaments in the neck. There is no evidence of a fracture of the neck bones. Also, no injury to the spinal cord or nerve roots was detected. Usually, stiffness and pain INCREASE for the first 24-48 hours after the injury. The pain will gradually resolve and the neck will become more mobile. Most patients are back at work or school within a few days. Typically, complete healing takes about two or three weeks. The usual initial treatment is rest and cold packs. A neck collar may be placed to keep the muscles of the neck at rest. Antiinflammatory and muscle relaxing medication are often used to reduce the spasm and irritation. You should call the doctor, or go to the hospital, if you develop numbness or weakness in any extremity, problems with your bladder or bowel, or pain radiating down the arms. CONTUSION: Your injury has resulted in a contusion -- a crushing of the deep tissues. No injury to important structures was detected during the physician's exam. Contusions vary in the amount of pain they cause, and in the length of time required for healing. Typically, the area will become bruised, and will remain painful to touch for two or three weeks. However, most patients are back to working and playing within a few days. After the initial period of rest and cold-packs, your symptoms (together with the doctor's recommendations) will determine how rapidly you can get back to full activity. Usually this means "do what feels okay, but don't do things that hurt." If re-examination was recommended, it's important to follow up as instructed. Call the doctor or return any time if pain increases, if swelling becomes severe, if you develop numbness or weakness in an injured extremity, or if any other alarming symptoms occur. LOW BACK PAIN: Three out of every four people will have an episode of disabling back pain during their lifetime. Most commonly the pain is due to straining of the muscles and ligaments in the low back. Usual treatment includes: (1) Rest on a firm surface. Avoid lying on your stomach. (2) Ice pack the painful area. After a few days, gentle heat may be used intermittently to relax the area, or ice packs can be continued. (3) Medication may be needed -- muscle relaxers and antiinflammatory medicines are commonly used. (4) As the back improves, exercises are prescribed to strengthen the back and abdominal muscles. Your doctor will advise you on the proper care for your back at each stage in your recovery. You may be better in a few days -- or healing may take several weeks. If new symptoms of a "herniated disc" (radiation of pain, numbness, or tingling down the back of the leg or weakness in the leg) occur, you should be re-examined. Further testing may be necessary. USE OF TYLENOL (ACETAMINOPHEN): Acetaminophen may be taken for pain relief or fever control. It's much safer than aspirin, offering a wider range of "safe" dosages. It is safe during . Some brand names are Tylenol, Panadol, Datril, Anacin 3, Tempra, and Liquiprin. Acetaminophen can be repeated every four hours. The following are maximum recommended dosages: WEIGHT Dose Drops Elixir Chewable( 80mg) (LBS.) drprs=droppers tsp=teaspoon 6 40 mg 0.4 ml (1/2) 6-11 80 mg 0.8 ml (full) tsp 1 tab 12-16 120 mg 1 1/2 drprs 3/4 tsp 1 1/2 tabs 17-23 160 mg 2 drprs 1 tsp 2 tabs 24-30 240 mg 3 drprs 1 1/2 tsp 3 tabs 30-35 320 mg 2 tsp 4 tabs 36-41 360 mg 2 1/4 tsp 4 1/2 tabs 42-47 400 mg 2 1/2 tsp 5 tabs 48-53 480 mg 3 tsp 6 tabs 54-59 520 mg 3 1/4 tsp 6 1/2 tabs 60-64 560 mg 3 1/2 tsp 7 tabs 65-70 600 mg 3 3/4 tsp 7 1/2 tabs 71-76 640 mg 4 tsp 8 tabs 77-82 720 mg 4 1/2 tsp 9 tabs 83-88 800 mg 5 tsp 10 tabs >89 pounds or adults 650 mg to 900 mg Acetaminophen can be repeated every four hours. Maximum dose not to exceed 4000 mg a day. These maximum recommended dosages are slightly higher than the dosages written on the product container, but these dosages are very safe and below the toxic dosage for acetaminophen. NON-SUTURED LACERATION: Your laceration did not require suturing. Some lacerations cannot be sutured because of increased infection risk, while others simply don't need stitches because they are shallow or very short. Your injury should be protected while it heals. Usually complete healing takes 10 to 14 days. Keep the dressing clean and dry, and change it every day. If you notice increasing pain, redness, swelling, drainage, or tender lumps in the armpit or groin above the injury, infection may be present. You should call the doctor at once. TETANUS IMMUNIZATION GIVEN: You have been given an immunization against tetanus. Please record this in your records. In general, a booster is needed only once every 10 years. The tetanus shot protects against tetanus or "lockjaw," which is a complication of certain wound infections (the tetanus shot cannot protect against the actual infection). The immunization site may become warm and red due to local reaction. If this occurs, apply warm compresses and take aspirin or ibuprofen to reduce inflammation and discomfort. Return for evaluation if the reaction becomes severe. ICE PACKS: Apply ice packs frequently against the painful area. Many different schedules are recommended, such as "20 minutes on, 20 minutes off" or "one hour ice, two hours rest." If you need to work, you may need to go longer between ice treatments. You should plan to have the area ice packed AT LEAST one fourth of the time. The ice should be applied over the wrap, tape, or splint, or over a layer of cloth -- not directly against the skin. Some ice bags have a built-in cloth and can be put directly on the skin. WARM PACKS: After approximately two days, apply gentle heat (such as a heating pad or hot water bottle) for about 20 to 30 minutes about every two hours -- at least four times daily. Warmth and elevation will help you make a more rapid recovery , and will ease the pain considerably. Do not use HOT heat, and never apply heat for longer than 30 minutes. The continuous heat can invisibly damage skin and muscles -- even when no burn is seen on the surface. Damaged muscles can make you MORE sore. MUSCLE RELAXERS: Muscle relaxing medications are usually prescribed for acute muscle spasm or injury to the neck and back. They are often combined with antiinflammatory pain medication for increased relief. You may stop the muscle relaxer when the pain and stiffness have improved. Start the medication again if spasms recur. Muscle relaxers may cause drowsiness, especially with the first dose. Do not operate machinery or drive while under the effects of the medication. Most muscle relaxers last up to 24 hours. Do not combine the medication with alcohol. FOLLOW-UP CARE: If you have been referred to a physician for follow-up care, call the physician s office for an appointment as you were instructed or within the next two days. If you experience worsening or a significant change in your symptoms, notify the physician immediately or return to the Emergency Department at any time for re-evaluation. Prescriptions: Cyclobenzaprine HCl [Flexeril 10 mg Tablet] 10 mg PO TIDP PRN #15 tab PRN Reason: For Pain Scale 4-5 Forms: Elevated Blood Pressure, Smoking Cessation Education, Return to Work
--- NOTE | 2017-11-19 17:55 | RADIOLOGY REPORT (SQ) ---
EXAM DESCRIPTION: CT HEAD WITHOUT COMPLETED DATE/TIME: 11/19/2017 5:47 pm REASON FOR STUDY: fall landing on back possible loc COMPARISON: None. TECHNIQUE: Axial images acquired through the brain without intravenous contrast. Images reviewed wi th bone, brain and subdural windows. Images stored on PACS. All CT scanners at this facility use dose modulation, iterative reconstruction, and/or weight based d osing when appropriate to reduce radiation dose to as low as reasonably achievable (ALARA). [facility]: Dose Right [facility]: CareDose [facility]: Dose Right [facility]: Teradose 4D [facility]: Next Points RADIATION DOSE: mGy. LIMITATIONS: None. FINDINGS: VENTRICLES: Normal size and contour. CEREBRUM: No masses. No hemorrhage. No midline shift. No evidence for acute infarction. Normal gra y/white matter differentiation. No areas of low density in the white matter. CEREBELLUM: No masses. No hemorrhage. No alteration of density. No evidence for acute infarction. EXTRAAXIAL SPACES: No fluid collections. No masses. ORBITS AND GLOBE: No intra- or extraconal masses. Normal contour of globe without masses. CALVARIUM: No fracture. PARANASAL SINUSES: No fluid or mucosal thickening. SOFT TISSUES: No mass or hematoma. OTHER: No other significant finding. IMPRESSION: NORMAL BRAIN CT WITHOUT CONTRAST. EVIDENCE OF ACUTE STROKE: NO. COMMENT: Quality ID # [id number]: Final reports with documentation of one or more dose reduction techniques (e.g., Automated exposure control, adjustment of the mA and/or kV according to patient size, use of iterative reconstruction technique) TECHNICAL DOCUMENTATION: JOB ID: [id number] [employer]- All Rights Reserved Reading location - IP/workstation name: [email or web address]
--- NOTE | 2017-11-19 18:01 | RADIOLOGY REPORT (SQ) ---
EXAM DESCRIPTION: CT CERVICAL SPINE WITHOUT COMPLETED DATE/TIME: 11/19/2017 5:52 pm REASON FOR STUDY: fall landing on back possible loc COMPARISON: None. TECHNIQUE: Axial images acquired through the cervical spine without intravenous contrast. Images re viewed with lung, soft tissue and bone windows. Reconstructed coronal and sagittal MPR images review ed. Images stored on PACS. All CT scanners at this facility use dose modulation, iterative reconstruction, and/or weight based d osing when appropriate to reduce radiation dose to as low as reasonably achievable (ALARA). [facility]: Dose Right [facility]: CareDose [facility]: Dose Right [facility]: Teradose 4D [facility]: Smart FrameBuzz RADIATION DOSE: CT Rad equipment meets quality standard of care and radiation dose reduction techniq ues were employed. CTDIvol: 24.1 mGy. DLP: 498 mGy-cm. mGy. LIMITATIONS: None. FINDINGS: ALIGNMENT: Anatomic. MINERALIZATION: Normal. VERTEBRAL BODIES: No fractures or dislocation. DISCS: Multilevel disc space narrowing with osteophytes. FACETS, LATERAL MASSES, POSTERIOR ELEMENTS: Facet arthropathy. No fractures. No dislocation. No ac jef findings. HARDWARE: None in the spine. VISUALIZED RIBS: No fractures. LUNG APICES AND SOFT TISSUES: No significant or acute findings. OTHER: No other significant finding. IMPRESSION: MILD CHRONIC DEGENERATIVE CHANGES. NO ACUTE FINDINGS. TECHNICAL DOCUMENTATION: JOB ID: [id number] Quality ID # [id number]: Final reports with documentation of one or more dose reduction techniques (e.g., Au tomated exposure control, adjustment of the mA and/or kV according to patient size, use of iterative reconstruction technique) 2010 [employer]- All Rights Reserved Reading location - IP/workstation name: [email or web address]
--- NOTE | 2017-11-19 18:19 | RADIOLOGY REPORT (SQ) ---
EXAM DESCRIPTION: L SPINE WHOLE COMPLETED DATE/TIME: 11/19/2017 6:00 pm REASON FOR STUDY: fall landing on back possible loc COMPARISON: None. NUMBER OF VIEWS: Five views including obliques. TECHNIQUE: AP, lateral, oblique, and sacral radiographic images acquired of the lumbar spine. LIMITATIONS: None. FINDINGS: MINERALIZATION: Normal. SEGMENTATION: Normal. No transitional anatomy. ALIGNMENT: Normal. VERTEBRAE: Maintained height. No fracture or worrisome bone lesion. DISCS: Mildly diminished L4/5 intervertebral disc height. Small marginal osteophytes are seen at sev eral levels. POSTERIOR ELEMENTS: Pedicles and facets are intact. No pars defect or posterior arch defects. Facet arthropathy is present. HARDWARE: None in the spine. PARASPINAL SOFT TISSUES: Normal. PELVIS: Intact as visualized. No fractures or worrisome bone lesions. SI joints intact. OTHER: No other significant finding. IMPRESSION: SPONDYLOSIS WITHOUT BONE LESION OR FRACTURE. TECHNICAL DOCUMENTATION: JOB ID: [id number] [employer]- All Rights Reserved Reading location - IP/workstation name: [email or web address]
[2017-11-19 18:57] VITALS: BP 142/83
== END 2017-11-19 18:55 | disposition home or self-care (01) ==
LOC: ER 14:43
DX: S16.1XXA Strain of muscle, fascia and tendon at neck level, initial encounter (principal); S09.90XA Unspecified injury of head, initial encounter; M54.5 Low back pain; M54.2 Cervicalgia; W01.0XXA Fall on same level from slipping, tripping and stumbling without subsequent striking against object, initial encounter; Y92.511 Restaurant or cafe as the place of occurrence of the external cause; Y99.0 Civilian activity done for income or pay; I10 Essential (primary) hypertension; J45.909 Unspecified asthma, uncomplicated; F17.290 Nicotine dependence, other tobacco product, uncomplicated; Z71.6 Tobacco abuse counseling
CPT/HCPCS: 70450; 72110; 72125; 99284; 99406

== ENCOUNTER 2018-10-08 14:39 | Emergency (ER) | payer BC, OTHER ==
--- NOTE | 2018-10-08 15:20 | ER Document Report ---
ED Medical Screen (RME) - General Chief Complaint: Flu Symptoms Stated Complaint: COLD SYMPTOMS Time Seen by Provider: 10/08/18 15:14 Notes: 48-year-old male patient with COPD and obstructive sleep apnea who does not use his CPAP, who did not get a flu shot this year, comes emerged from with 2-day history of flulike symptoms with green sputum productive cough, a little bit of a fever. His O2 saturation is 89% on room air, but this is reported as normal range for him. He does not look to be in any respiratory distress at all. He states that his breathing feels fine. His lungs actually sound quite clear considering his underlying illness. The nurse reported he was nodding off earlier, but he is completely alert and oriented while speaking to me. I have greeted and performed a rapid initial assessment of this patient. A comprehensive ED assessment and evaluation of the patient, analysis of test results and completion of the medical decision making process will be conducted by additional ED providers. TRAVEL OUTSIDE OF THE [place] IN LAST 30 DAYS: No - Related Data Allergies/Adverse Reactions: No Known Allergies Allergy (Verified 10/08/18 14:40) Past Medical History - Social History Chew tobacco use (# tins/day): No Frequency of alcohol use: None Drug Abuse: None Pulmonary Medical History: Reports: Hx Asthma, Hx Bronchitis, Hx Pneumonia, Hx Respiratory Failure, Hx Sleep Apnea Renal/ Medical History: Denies: Hx Peritoneal Dialysis Musculoskeltal Medical History: Reports Hx Musculoskeletal Deformity, Reports Hx Musculoskeletal Trauma Past Surgical History: Reports: Hx Adenoidectomy, Hx Oral Surgery - Clipped his uvula, Hx Tonsillectomy, Other - Tracheostomy - Immunizations Hx Diphtheria, Pertussis, Tetanus Vaccination: Yes Physical Exam - Vital signs Vitals: Temp Pulse Resp BP Pulse Ox 99.4 F 97 24 H 149/88 H 89 L 10/08/18 14:56 10/08/18 14:56 10/08/18 14:56 10/08/18 14:56 10/08/18 14:56 Course - Vital Signs Vital signs: Temp Pulse Resp BP Pulse Ox 99.4 F 97 24 H 149/88 H 89 L 10/08/18 14:56 10/08/18 14:56 10/08/18 14:56 10/08/18 14:56 10/08/18 14:56
[2018-10-08] MEDS ORDERED: ACETAMINOPHEN 325 MG TABLET PO ONE (15:21)
[2018-10-08] MEDS ORDERED: IPRATROPIUM/ALBUTEROL 0.5-2.5 MG/3 ML AMPUL NEB ONE (15:48)
[2018-10-08 15:54] LABS: ABSOLUTE LYMPHOCYTES (AUTO) 0.7 10^3/uL (0.5-4.7); ABSOLUTE MONOCYTES (AUTO) 0.6 10^3/uL (0.1-1.4); ABSOLUTE NEUT (AUTO) 2.6 10^3/uL (1.7-8.2); BASOPHILS % (AUTO) 0.7 % (0-2); EOSINOPHILS % (AUTO) 0.2 % (0-6); HEMOGLOBIN 14.3 g/dL (13.5-17.0); LYMPHOCYTES % (AUTO) 17.5 % (13-45); MEAN CORPUSCULAR HEMOGLOBIN 28.7 pg (27.0-33.4); MEAN CORPUSCULAR HGB CONC 32.5 g/dL (32.0-36.0); MEAN CORPUSCULAR VOLUME 88 fl (80-97); PLATELET COUNT 211 10^3/uL (150-450); RED BLOOD COUNT 4.98 10^6/uL (4.35-5.55); RED CELL DISTRIBUTION WIDTH 13.8 % (11.5-14.0); SEGMENTED NEUTROPHILS % (AUTO) 65.6 % (42-78); TOTAL CELLS COUNTED % (AUTO) 100 %
[2018-10-08 15:58] LABS: VENOUS BLOOD BASE EXCESS 5.8 mmol/L; VENOUS BLOOD PCO2 64.6 mmHg (35-63); VENOUS BLOOD PH 7.34 (7.30-7.42)
--- NOTE | 2018-10-08 16:00 | RADIOLOGY REPORT (SQ) ---
EXAM DESCRIPTION: CHEST 2 VIEWS COMPLETED DATE/TIME: 10/08/2018 3:38 pm REASON FOR STUDY: COPD, recent onset flulike illness COMPARISON: Chest x-ray 03/20/2017. EXAM PARAMETERS: NUMBER OF VIEWS: two views TECHNIQUE: Digital Frontal and Lateral radiographic views of the chest acquired. RADIATION DOSE: NA LIMITATIONS: none FINDINGS: LUNGS AND PLEURA: There are bilateral perihilar airspace opacities. No pleural effusion o r pneumothorax. MEDIASTINUM AND HILAR STRUCTURES: No masses or contour abnormalities. HEART AND VASCULAR STRUCTURES: The heart is enlarged. There is vascular congestion. BONES: No acute findings. HARDWARE: None in the chest. IMPRESSION: Cardiomegaly and vascular congestion. Bilateral perihilar airspace opacities, may repre sent pulmonary edema and/or pneumonia. TECHNICAL DOCUMENTATION: JOB ID: [id number] [employer]- All Rights Reserved Reading location - IP/workstation name: [email or web address]
[2018-10-08 16:13] LABS: ALANINE AMINOTRANSFERASE 33 U/L (21-72); ALBUMIN 4.3 g/dL (3.5-5.0); ALKALINE PHOSPHATASE 77 U/L (38-126); ANION GAP 9 (5-19); ASPARTATE AMINO TRANSFERASE 40 U/L (17-59); BILIRUBIN,DIRECT 0.3 mg/dL (0.0-0.4); BILIRUBIN,TOTAL 0.5 mg/dL (0.2-1.3); BLOOD UREA NITROGEN 11 mg/dL (7-20); CALCIUM 8.9 mg/dL (8.4-10.2); CARBON DIOXIDE 32 mmol/L (22-30); CHLORIDE 94 mmol/L (98-107); GLUCOSE 117 mg/dL (75-110); POTASSIUM 4.8 mmol/L (3.6-5.0); SODIUM 135.4 mmol/L (137-145); TOTAL PROTEIN 7.5 g/dL (6.3-8.2)
[2018-10-08 17:00] LABS: A TYPE INFLUENZA AG NEGATIVE (NEGATIVE); B INFLUENZA AG NEGATIVE (NEGATIVE)
--- NOTE | 2018-10-08 19:26 | ER Document Report ---
ED General - General Chief Complaint: Flu Symptoms Stated Complaint: COLD SYMPTOMS Time Seen by Provider: 10/08/18 15:14 Primary Care Provider: ALBA RICARDO MD [Primary Care Provider] - Follow up in 3-5 days Mode of Arrival: Ambulatory Information source: Patient TRAVEL OUTSIDE OF THE [place] IN LAST 30 DAYS: No - HPI Patient complains to provider of: Short of breath Onset: Other - Is a 48-year-old male who presents for evaluation of cough body aches and shortness of breath over the last 3 days he says that he feels like he has the flu that it has been getting slightly worse. He is someone who suffers from sleep apnea and wears a CPAP machine nightly he also uses oxygen while at home though he is unsure why he is on oxygen. He denies any heart lung brain bowel problems. Denies any fevers or chills or other recent illnesses. - Related Data Allergies/Adverse Reactions: No Known Allergies Allergy (Verified 10/08/18 14:40) Past Medical History - General Information source: Patient - Social History Smoking Status: Current Some Day Smoker Chew tobacco use (# tins/day): No Frequency of alcohol use: None Drug Abuse: None Family History: Arthritis, CVA, Hyperlipidemia, Hypertension, Malignancy - Colon cancer. denies: CAD, COPD, DM, Thyroid Disfunction Patient has suicidal ideation: No Patient has homicidal ideation: No Pulmonary Medical History: Reports: Hx Asthma, Hx Bronchitis, Hx Pneumonia, Hx Respiratory Failure, Hx Sleep Apnea Renal/ Medical History: Denies: Hx Peritoneal Dialysis Musculoskeletal Medical History: Reports Hx Musculoskeletal Deformity, Reports Hx Musculoskeletal Trauma Past Surgical History: Reports: Hx Adenoidectomy, Hx Oral Surgery - Clipped his uvula, Hx Tonsillectomy, Other - Tracheostomy - Immunizations Hx Diphtheria, Pertussis, Tetanus Vaccination: Yes Review of Systems - Review of Systems -: Yes All other systems reviewed and negative Physical Exam - Vital signs Vitals: Temp Pulse Resp BP Pulse Ox 99.4 F 97 24 H 149/88 H 89 L 10/08/18 14:56 10/08/18 14:56 10/08/18 14:56 10/08/18 14:56 10/08/18 14:56 - General General appearance: Alert In distress: Mild - HEENT Head: Normocephalic Eyes: Normal Conjunctiva: Normal Cornea: Normal Extraocular movements intact: Yes Eyelashes: Normal Pupils: PERRL - Respiratory Respiratory status: Tachypnea Chest status: Tender Breath sounds: Rhonchi, Wheezing Chest palpation: Normal - Cardiovascular Rhythm: Regular Heart sounds: Normal auscultation - Abdominal Inspection: Normal Distension: No distension Tenderness: Nontender Organomegaly: No organomegaly - Back Back: Normal, Nontender - Extremities General upper extremity: Normal inspection, Nontender, Normal color, Normal ROM, Normal temperature General lower extremity: Normal inspection, Nontender, Normal color, Normal ROM, Normal temperature, Normal weight bearing. No: Royce's sign - Neurological Neuro grossly intact: Yes Cognition: Normal Orientation: AAOx4 Miles Coma Scale Eye Opening: Spontaneous Miles Coma Scale Verbal: Oriented Eveline Coma Scale Motor: Obeys Commands Miles Coma Scale Total: 15 Speech: Normal Motor strength normal: LUE, RUE, LLE, RLE Sensory: Normal - Psychological Associated symptoms: Normal affect, Normal mood Course - Re-evaluation Re-evalutation: This 48-year-old man presents for cough and shortness of breath. This gentleman initially stated that he did not have any health problems though he does wear CPAP at night. He demonstrated some episodes in which he would fall asleep in the emergency department and have desaturations into the high 80s, on reinvestigation discussed with his patient my concern about his possible pneumonia and he noted that he actually wears oxygen at home, I questioned whether or not this was because of some underlying lung disease and he stated "I do not really know why I have it". Given that this gentleman is chronically on oxygen at home the fact that his saturations has hovered around 90 while off of oxygen is actually reassuring in the emergency department. He is ambulatory without assistance and overall well-appearing, he is got a benign neurologic examination and no chest pain. Do not believe he is got a more serious underlying cause of his condition such as decompensated heart failure or myocardial infarction. I believe likely this gentleman has a pneumonia, it is potential this could be a viral pneumonia though given this gentlemen's poor protoplasm we will proceed with treatment presumptively for community-acquired pneumonia. He will be discharged with return precautions and expectant management. - Vital Signs Vital signs: Temp Pulse Resp BP Pulse Ox 98.9 F 93 18 140/67 H 97 10/08/18 20:50 10/08/18 19:31 10/08/18 19:31 10/08/18 20:50 10/08/18 20:50 - Laboratory Result Diagrams: 10/08/18 15:25 10/08/18 15:25 Laboratory results interpreted by me: 10/08/18 10/08/18 10/08/18 15:25 15:25 15:25 Monocytes % 16.0 H VBG pCO2 64.6 H VBG HCO3 34.0 H Sodium 135.4 L Chloride 94 L Carbon Dioxide 32 H Glucose 117 H Discharge - Discharge Clinical Impression: Flu-like symptoms Pneumonia Qualifiers: Pneumonia type: due to unspecified organism Laterality: unspecified laterality Lung location: unspecified part of lung Qualified Code(s): J18.9 - Pneumonia, unspecified organism Condition: Good Disposition: HOME, SELF-CARE Instructions: Acetaminophen, Influenza ([facility]) [id number], Pneumonia ([facility]) Additional Instructions: You were seen today in the emergency department for your shortness of breath. I think that your shortness of breath is being caused by pneumonia and a flulike illness. Your flulike illness will be treated with a medication that you should take twice daily. Follow-up with your doctor this week for a recheck to make sure that you are getting better. If you have worsening shortness of breath cannot eat or drink or he feel worse please return to the emergency department as it could be a more serious condition. Prescriptions: Doxycycline Hyclate 100 mg PO BID #14 capsule Ondansetron [Zofran Odt 4 mg Tablet] 1 - 2 tab PO Q4H PRN #15 tab.rapdis PRN Reason: For Nausea/Vomiting Forms: Elevated Blood Pressure, Return to Work Referrals: ALBA RICARDO MD [Primary Care Provider] - Follow up in 3-5 days
[2018-10-08] MEDS ORDERED: DOXYCYCLINE HYCLATE 100 MG TABLET PO ONE (19:31)
[2018-10-08] MEDS ORDERED: ALBUTEROL SULFATE HFA (90 MCG/PUFF) 8 GM MDI (1 MDI/ER DISP) IH PRN (19:31)
[2018-10-08 20:53] VITALS: BP 140/67
== END 2018-10-08 20:50 | disposition home or self-care (01) ==
LOC: ER 14:39
DX: J18.9 Pneumonia, unspecified organism (principal); R06.02 Shortness of breath; M79.10 Myalgia, unspecified site; Z99.81 Dependence on supplemental oxygen; F17.200 Nicotine dependence, unspecified, uncomplicated
CPT/HCPCS: 94640; 99284; 36415; 85025; 80053; 82803; 83605; 87804; 71046; J3490; J7620

== ENCOUNTER 2019-04-01 10:55 | Emergency (ER) | payer BC, OTHER ==
--- NOTE | 2019-04-01 11:13 | ER Document Report ---
ED Medical Screen (RME) - General Chief Complaint: Knee Pain Stated Complaint: KNEE PAIN Time Seen by Provider: 04/01/19 11:07 Primary Care Provider: ALBA RICARDO MD [Primary Care Provider] - Follow up as needed TRAVEL OUTSIDE OF THE [place] IN LAST 30 DAYS: No - HPI Notes: 04/01/19 11:12 Patient is a 49-year-old male with no significant past medical history who presents complaining of left medial knee pain without injury that began yesterday. Patient states that he started noticing increased swelling to his left lower leg yesterday as well. Patient states that he has had issues with swelling to both of his legs over the past month, but has noticed a significant difference in swelling of his left leg versus his right leg over the past 24 hours. He has not noticed any redness or bruising. Patient states that on occasion he will have some shortness of breath when he is exerting himself. Patient otherwise feels well at this time. He is able to eat and drink without difficulty. He is urinating normally. Denies drug allergies. Denies VILLANUEVA, fever, neck pain, URI, CP, SOB, Abd pain, dysuria, back pain, or rash. I have treated and performed a rapid initial assessment of this patient. A comprehensive ED assessment and evaluation of the patient, analysis of test results and completion of medical decision making process will be conducted by additional ED providers. PHYSICAL EXAMINATION: GENERAL: Well-appearing, well-nourished and in no acute distress. A&Ox4. Answers questions appropriately. Vitals: O2 on RA is 92%. LUNGS: Breath sounds clear to auscultation bilaterally and equal. No wheezes rales or rhonchi. HEART: Regular rate and rhythm without murmurs, rubs, gallops. Extremities: 2+ pitting edema LLE vs 1+ rt LE. + asymmetry NEUROLOGICAL: Normal speech, normal gait. PSYCH: Normal mood, normal affect. - Related Data Allergies/Adverse Reactions: No Known Allergies Allergy (Verified 04/01/19 10:56) Past Medical History Pulmonary Medical History: Reports: Hx Asthma, Hx Bronchitis, Hx Pneumonia, Hx Respiratory Failure, Hx Sleep Apnea Renal/ Medical History: Denies: Hx Peritoneal Dialysis Musculoskeltal Medical History: Reports Hx Musculoskeletal Deformity, Reports Hx Musculoskeletal Trauma Past Surgical History: Reports: Hx Adenoidectomy, Hx Oral Surgery - Clipped his uvula, Hx Tonsillectomy, Other - Tracheostomy - Immunizations Hx Diphtheria, Pertussis, Tetanus Vaccination: Yes Physical Exam - Vital signs Vitals: Temp Pulse Resp BP Pulse Ox 98.1 F 98 20 154/88 H 92 04/01/19 11:00 04/01/19 11:00 04/01/19 11:00 04/01/19 11:00 04/01/19 11:00 Course - Vital Signs Vital signs: Temp Pulse Resp BP Pulse Ox 98.1 F 98 20 154/88 H 92 04/01/19 11:00 04/01/19 11:00 04/01/19 11:00 04/01/19 11:00 04/01/19 11:00 Doctor's Discharge - Discharge Referrals: ALBA RICARDO MD [Primary Care Provider] - Follow up as needed
[2019-04-01] MEDS ORDERED: IPRATROPIUM/ALBUTEROL 0.5-2.5 MG/3 ML AMPUL NEB ONE (11:14)
[2019-04-01 11:57] LABS: ABSOLUTE BASOPHILS # (AUTO) 0.1 10^3/uL (0.0-0.2); ABSOLUTE EOSINOPHILS # (AUTO) 0.3 10^3/uL (0.0-0.6); ABSOLUTE LYMPHOCYTES (AUTO) 2.3 10^3/uL (0.5-4.7); ABSOLUTE MONOCYTES (AUTO) 0.5 10^3/uL (0.1-1.4); ABSOLUTE NEUT (AUTO) 5.8 10^3/uL (1.7-8.2); BASOPHILS % (AUTO) 0.8 % (0-2); EOSINOPHILS % (AUTO) 2.9 % (0-6); HEMATOCRIT 44.5 % (37.9-51.0); HEMOGLOBIN 14.3 g/dL (13.5-17.0); LYMPHOCYTES % (AUTO) 25.3 % (13-45); MEAN CORPUSCULAR HEMOGLOBIN 28.8 pg (27.0-33.4); MEAN CORPUSCULAR VOLUME 90 fl (80-97); MONOCYTES % (AUTO) 5.9 % (3-13); PLATELET COUNT 237 10^3/uL (150-450); RED BLOOD COUNT 4.95 10^6/uL (4.35-5.55); RED CELL DISTRIBUTION WIDTH 14.6 % (11.5-14.0); SEGMENTED NEUTROPHILS % (AUTO) 65.1 % (42-78); TOTAL CELLS COUNTED % (AUTO) 100 %
[2019-04-01 12:02] LABS: APPEARANCE,URINE CLEAR; BILIRUBIN,URINE NEGATIVE (NEGATIVE); COLOR,URINE YELLOW; GLUCOSE, URINE NEGATIVE (NEGATIVE); KETONES,URINE NEGATIVE (NEGATIVE); LEUKOCYTE ESTERASE,URINE NEGATIVE (NEGATIVE); NITRITE,URINE NEGATIVE (NEGATIVE); PROTEIN,URINE NEGATIVE (NEGATIVE); URINE SPECIFIC GRAVITY 1.023
[2019-04-01 12:13] LABS: ALANINE AMINOTRANSFERASE 26 U/L (21-72); ALBUMIN 4.1 g/dL (3.5-5.0); ALKALINE PHOSPHATASE 85 U/L (38-126); ANION GAP 7 (5-19); ASPARTATE AMINO TRANSFERASE 28 U/L (17-59); BILIRUBIN,DIRECT 0.2 mg/dL (0.0-0.4); BILIRUBIN,TOTAL 0.4 mg/dL (0.2-1.3); BLOOD UREA NITROGEN 12 mg/dL (7-20); CALCIUM 9.3 mg/dL (8.4-10.2); CARBON DIOXIDE 30 mmol/L (22-30); CHLORIDE 105 mmol/L (98-107); GLUCOSE 114 mg/dL (75-110); POTASSIUM 4.6 mmol/L (3.6-5.0); SODIUM 141.8 mmol/L (137-145); TOTAL PROTEIN 7.6 g/dL (6.3-8.2)
--- NOTE | 2019-04-01 13:24 | RADIOLOGY REPORT (SQ) ---
EXAM DESCRIPTION: CHEST 2 VIEWS COMPLETED DATE/TIME: 04/01/2019 1:09 pm REASON FOR STUDY: LE edema, BECERRA COMPARISON: 10/08/2018 EXAM PARAMETERS: NUMBER OF VIEWS: two views TECHNIQUE: Digital Frontal and Lateral radiographic views of the chest acquired. RADIATION DOSE: NA LIMITATIONS: none FINDINGS: LUNGS AND PLEURA: Moderate diffuse bilateral interstitial pulmonary opacity. MEDIASTINUM AND HILAR STRUCTURES: No masses or contour abnormalities. HEART AND VASCULAR STRUCTURES: Cardiomegaly. BONES: Disc degenerative disease of the thoracic spine. HARDWARE: None in the chest. OTHER: No other significant finding. IMPRESSION: Moderate diffuse interstitial pulmonary opacity, likely edema in the setting of cardiome alejandro. No focal airspace opacity. TECHNICAL DOCUMENTATION: JOB ID: [id number] [employer]- All Rights Reserved Reading location - IP/workstation name: [email or web address]
--- NOTE | 2019-04-01 14:41 | RADIOLOGY REPORT (SQ) ---
EXAM DESCRIPTION: VENOUS UNILATERAL LOWER COMPLETED DATE/TIME: 04/01/2019 2:27 pm REASON FOR STUDY: LLE swelling COMPARISON: None. TECHNIQUE: Dynamic and static sanchez scale and color images acquired of the left leg venous system. Se lected spectral images acquired with additional compression and augmentation maneuvers. The contralat eral common femoral vein and saphenofemoral junction were also imaged. Images stored on PACS. LIMITATIONS: None. FINDINGS: COMMON FEMORAL: Normal phasicity, compression and augmentation. No visualized echogenic ma terial on sanchez scale. No defects on color images. FEMORAL: Normal compression and augmentation. No visualized echogenic material on sanchez scale. No defe cts on color images. POPLITEAL: Normal compression, augmentation. No visualized echogenic material on sanchez scale. No defec ts on color images. CALF VESSELS: Normal compression, augmentation. No visualized echogenic material on sanchez scale. No de fects on color images. GSV and SSV: Normal compression, augmentation. No visualized echogenic material on sanchez scale. No def ects on color images. ANY DEEP VENOUS INSUFFICIENCY: Not evaluated. ANY EVIDENCE OF POPLITEAL CYST: No. OTHER: No other significant finding. CONTRALATERAL COMMON FEMORAL VEIN AND SAPHENOFEMORAL JUNCTION: Normal phasicity, compression and augmentation. No visualized echogenic material on sanchez scale. No de fects on color images. IMPRESSION: Negative examination for deep venous thrombosis in the left lower extremity. TECHNICAL DOCUMENTATION: JOB ID: [id number] [employer]- All Rights Reserved Reading location - IP/workstation name: [email or web address]
[2019-04-01 15:07] VITALS: BP 154/80
--- NOTE | 2019-04-01 21:43 | ER Document Report ---
Entered by EAN COONEY SCRIBE 04/01/19 2452 Acting as scribe for:REEMA HUBBARD DO ED General - General Chief Complaint: Knee Pain Stated Complaint: KNEE PAIN Time Seen by Provider: 04/01/19 11:07 Primary Care Provider: ALBA RICARDO MD [ACTIVE STAFF] - Follow up as needed Mode of Arrival: Ambulatory Information source: Patient Notes: Patient is a 49 year old male with sleep apnea (CPAP at night, oxygen while at home) presents to the emergency department complaining of left leg swelling and left knee pain onset a few days ago. Patient states his left leg would intermittently swell and reports a sharp pain in his left knee when applying pressure. Patient states he works 7 days a week where he is standing most of the day and attributes this as the cause of his pain. Patient mentions having shortness of breath on exertion but reports this is a chronic problem. He denies any chest pain, trouble breathing, being on hormones, recent travels or surgeries, or a history of CA, strokes, stress tests or catheterizations. TRAVEL OUTSIDE OF THE [place] IN LAST 30 DAYS: No - Related Data Allergies/Adverse Reactions: No Known Allergies Allergy (Verified 04/01/19 10:56) Past Medical History - General Information source: Patient - Social History Smoking Status: Current Every Day Smoker Cigarette use (# per day): Yes Chew tobacco use (# tins/day): No Smoking Education Provided: No Frequency of alcohol use: None Drug Abuse: None Family History: Arthritis, CVA, Hyperlipidemia, Hypertension, Malignancy - Colon cancer Patient has suicidal ideation: No Patient has homicidal ideation: No Pulmonary Medical History: Reports: Hx Asthma, Hx Bronchitis, Hx Pneumonia, Hx Respiratory Failure, Hx Sleep Apnea Musculoskeletal Medical History: Reports Hx Musculoskeletal Deformity, Reports Hx Musculoskeletal Trauma Past Surgical History: Reports: Hx Adenoidectomy, Hx Oral Surgery - Clipped his uvula, Hx Tonsillectomy, Other - Tracheostomy - Immunizations Hx Diphtheria, Pertussis, Tetanus Vaccination: Yes Review of Systems - Review of Systems Constitutional: No symptoms reported EENT: No symptoms reported Cardiovascular: No symptoms reported Respiratory: See HPI, Short of breath Gastrointestinal: No symptoms reported Genitourinary: No symptoms reported Male Genitourinary: No symptoms reported Musculoskeletal: See HPI Skin: No symptoms reported Hematologic/Lymphatic: See HPI Neurological/Psychological: No symptoms reported -: Yes All other systems reviewed and negative Physical Exam - Vital signs Vitals: Temp Pulse Resp BP Pulse Ox 98.1 F 98 20 154/88 H 92 04/01/19 11:00 04/01/19 11:00 04/01/19 11:00 04/01/19 11:00 04/01/19 11:00 - Notes Notes: GENERAL: Alert, interacts well. No acute distress. HEAD: Normocephalic, atraumatic. EYES: Pupils equal, round, and reactive to light. Extraocular movements intact. ENT: Oral mucosa moist, tongue midline. NECK: Full range of motion. Supple. Trachea midline. Well-healed tracheostomy scar. LUNGS: Clear to auscultation bilaterally, no wheezes, rales, or rhonchi. No respiratory distress. HEART: Regular rate and rhythm. No murmurs, gallops, or rubs. ABDOMEN: Soft, non-tender. Non-distended. Bowel sounds present in all 4 quadrants. No guarding, rigidity, or rebound. EXTREMITIES: Moves all 4 extremities spontaneously. 3+ pitting edema to the LLE, 2+ pitting edema to the RLE, no erythema. Negative Royce's sign. Negative Wilfrid' sign. 2/4 dorsalis pedis pulses. Decreased hair growth to the lower half of the leg bilaterally. Normal sensations. Pain with lateral stress to the left knee, no pain with medial stress of the left knee or along the joint line. No ligamentous laxity. No cyanosis. NEUROLOGICAL: Alert and oriented x3. Normal speech. PSYCH: Normal affect, normal mood. SKIN: Warm, dry, normal turgor. No rashes or lesions noted. Course - Re-evaluation Re-evalutation: 04/01/19 14:47 CBC unremarkable, CMP grossly unremarkable, BNP normal, urinalysis unremarkable, chest x-ray shows moderate diffuse interstitial pulmonary opacity, likely edema in the setting of cardiomegaly. No focal airspace opacity. Venous Doppler study is negative for DVT in the left leg. Patient complains of no new shortness of breath or dyspnea on exertion. States he was diagnosed with "low oxygen levels" over a year ago and now has CPAP at home and has an oxygen machine that he is supposed to use when he is at home or while he sleeping. Patient states they have never really given him a specific explanation for why he has low oxygen levels. Despite the presence of possible pulmonary edema on his chest x-ray his lungs are clear, patient has no new shortness of breath and has been having chronic dyspnea on exertion for over a year if not 2 to 3 years. Patient has never had a stress test or a heart cath. Advised patient to follow-up with his primary care physician as an outpatient to possibly have a cardiac work-up to include stress test. Patient is agreeable to this plan. Patient does have peripheral edema in his legs, I will start him on a low-dose of Lasix to see if this will relieve some of his dyspnea on exertion as well as some of his peripheral edema. There is no DVT in his left leg. Examination of his left knee does not reveal any ligamentous laxity only a small amount of pain with lateral stress, this causes pain along the MCL of the left leg. Patient will be placed in Fernando wrap and discharged to home. - Vital Signs Vital signs: Temp Pulse Resp BP Pulse Ox 98.1 F 78 22 H 154/80 H 95 04/01/19 15:05 04/01/19 15:05 04/01/19 15:05 04/01/19 15:05 04/01/19 15:05 - Laboratory Result Diagrams: 04/01/19 11:44 04/01/19 11:44 Laboratory results interpreted by me: 04/01/19 04/01/19 04/01/19 11:44 11:44 11:44 RDW 14.6 H Glucose 114 H Urine Urobilinogen 2.0 H Urine Ascorbic Acid 40 H Procedures - Immobilization Left Knee Pre-Proc Neuro Vasc Exam: Normal Immobilizer type: Fernando wrap Performed by: PCT Post-Proc Neuro Vasc Exam: Normal, Unchanged from pre-exam Alignment checked and good: Yes Discharge - Discharge Clinical Impression: Left medial knee pain, Morbid obesity, Peripheral edema Condition: Stable Disposition: HOME, SELF-CARE Additional Instructions: There is no evidence of blood clot in your leg. Your legs are swollen and your chest x-ray says you may have a small amount of fluid in your lungs as well. I have given you a prescription for Lasix (furosemide). This is a fluid pill that should help to decrease the swelling on your legs. Please take 1 pill once a day for the next 2 weeks. It will make you urinate frequently so I recommend you take it first thing in the morning r ather than before you go to sleep at night. Given the shortness of breath that you have when you walk around or otherwise exert yourself I recommend that you follow-up with Dr. Ricardo as an outpat ient, he may wish to consider performing a stress test or referring you for a stress test to evaluate your dyspnea on exertion. If you develop chest pain, increasing shortness of breath or any new or concerning symptoms please return to the emergency department immediately. For the pain in your left knee there was no injury, there was no need to do an x-ray today however we did place you and is in an Fernando wrap as you were somewhat tender along your medial collateral ligament. You may wear this for the next 3 to 4 days to provide extra support and it may help to decrease your pain after that you should wear only as needed. Prescriptions: Furosemide [Lasix 20 mg Tablet] 20 mg PO QAM #30 tablet Referrals: ALBA RICARDO MD [ACTIVE STAFF] - Follow up as needed I personally performed the services described in the documentation, reviewed and edited the documentation which was dictated to the scribe in my presence, and it accurately records my words and actions.
== END 2019-04-01 15:05 | disposition home or self-care (01) ==
LOC: ER 10:55
DX: M25.562 Pain in left knee (principal); E66.01 Morbid (severe) obesity due to excess calories; R60.0 Localized edema; M79.89 Other specified soft tissue disorders; R06.02 Shortness of breath; F17.210 Nicotine dependence, cigarettes, uncomplicated; J45.909 Unspecified asthma, uncomplicated
CPT/HCPCS: 99284; 36415; 85025; 80053; 81001; 83880; 93971; 71046; J7620

== ENCOUNTER 2019-09-19 12:08 | Emergency (ER) | payer BC ==
--- NOTE | 2019-09-19 12:59 | ER Document Report ---
ED Medical Screen (RME) - General Chief Complaint: Low Back Pain Stated Complaint: LOW BACK PAIN Time Seen by Provider: 09/19/19 12:53 Mode of Arrival: Ambulatory Information source: Patient Notes: 49-year-old male presents emergency department with left-sided flank pain back pain. Reports for the past couple of days. Denies fever vomiting diarrhea. Reports urinary frequency and urgency. Patient does take a water pill daily. Patient has been to the emergency department in the past for back pain. Denies trauma. Denies urinary bowel incontinence or retention. Reports back hurts mor e with movement I have greeted and performed a rapid initial assessment of this patient. A comprehensive ED assessment and evaluation of the patient, analysis of test results and completion of the medical decision making process will be conducted by additional ED providers. TRAVEL OUTSIDE OF THE [place] IN LAST 30 DAYS: No - Related Data Allergies/Adverse Reactions: No Known Allergies Allergy (Verified 04/01/19 10:56) Past Medical History Pulmonary Medical History: Reports: Hx Asthma, Hx Bronchitis, Hx Pneumonia, Hx Respiratory Failure, Hx Sleep Apnea Renal/ Medical History: Denies: Hx Peritoneal Dialysis Musculoskeltal Medical History: Reports Hx Musculoskeletal Deformity, Reports Hx Musculoskeletal Trauma Past Surgical History: Reports: Hx Adenoidectomy, Hx Oral Surgery - Clipped his uvula, Hx Tonsillectomy, Other - Tracheostomy - Immunizations Hx Diphtheria, Pertussis, Tetanus Vaccination: Yes Physical Exam - Vital signs Vitals: Temp Pulse Resp BP Pulse Ox 98.6 F 85 18 129/94 H 97 09/19/19 12:52 09/19/19 12:52 09/19/19 12:52 09/19/19 12:52 09/19/19 12:52 Course - Vital Signs Vital signs: Temp Pulse Resp BP Pulse Ox 98.6 F 85 18 129/94 H 97 09/19/19 12:52 09/19/19 12:52 09/19/19 12:52 09/19/19 12:52 09/19/19 12:52
[2019-09-19 14:17] LABS: ABSOLUTE BASOPHILS # (AUTO) 0.1 10^3/uL (0.0-0.2); ABSOLUTE EOSINOPHILS # (AUTO) 0.2 10^3/uL (0.0-0.6); ABSOLUTE LYMPHOCYTES (AUTO) 2.4 10^3/uL (0.5-4.7); ABSOLUTE MONOCYTES (AUTO) 0.6 10^3/uL (0.1-1.4); ABSOLUTE NEUT (AUTO) 5.3 10^3/uL (1.7-8.2); BASOPHILS % (AUTO) 0.7 % (0-2); EOSINOPHILS % (AUTO) 2.3 % (0-6); HEMATOCRIT 45.1 % (37.9-51.0); HEMOGLOBIN 14.8 g/dL (13.5-17.0); LYMPHOCYTES % (AUTO) 28.3 % (13-45); MEAN CORPUSCULAR HEMOGLOBIN 29.3 pg (27.0-33.4); MEAN CORPUSCULAR HGB CONC 32.9 g/dL (32.0-36.0); MEAN CORPUSCULAR VOLUME 89 fl (80-97); MONOCYTES % (AUTO) 7.4 % (3-13); PLATELET COUNT 243 10^3/uL (150-450); RED BLOOD COUNT 5.07 10^6/uL (4.35-5.55); RED CELL DISTRIBUTION WIDTH 13.9 % (11.5-14.0); SEGMENTED NEUTROPHILS % (AUTO) 61.3 % (42-78); TOTAL CELLS COUNTED % (AUTO) 100 %; WHITE BLOOD COUNT 8.6 10^3/uL (4.0-10.5)
[2019-09-19 14:20] LABS: APPEARANCE,URINE CLEAR; BILIRUBIN,URINE NEGATIVE (NEGATIVE); COLOR,URINE YELLOW; GLUCOSE, URINE NEGATIVE (NEGATIVE); KETONES,URINE NEGATIVE (NEGATIVE); LEUKOCYTE ESTERASE,URINE NEGATIVE (NEGATIVE); NITRITE,URINE NEGATIVE (NEGATIVE); PROTEIN,URINE NEGATIVE (NEGATIVE); URINE SPECIFIC GRAVITY 1.016
[2019-09-19 14:39] LABS: ALBUMIN 4.4 g/dL (3.5-5.0); ALKALINE PHOSPHATASE 82 U/L (38-126); ANION GAP 8 (5-19); ASPARTATE AMINO TRANSFERASE 32 U/L (17-59); BILIRUBIN,DIRECT 0.3 mg/dL (0.0-0.4); BILIRUBIN,TOTAL 0.6 mg/dL (0.2-1.3); BLOOD UREA NITROGEN 14 mg/dL (7-20); CALCIUM 9.6 mg/dL (8.4-10.2); CARBON DIOXIDE 33 mmol/L (22-30); CHLORIDE 99 mmol/L (98-107); GLUCOSE 105 mg/dL (75-110); POTASSIUM 4.4 mmol/L (3.6-5.0); TOTAL PROTEIN 8.2 g/dL (6.3-8.2)
--- NOTE | 2019-09-19 15:04 | RADIOLOGY REPORT (SQ) ---
EXAM DESCRIPTION: U/S RETROPERITON LTD COMPLETED DATE/TIME: 09/19/2019 2:49 pm REASON FOR STUDY: flank pain left COMPARISON: None. TECHNIQUE: Dynamic and static grayscale images acquired of the kidneys and bladder and recorded on P ACS. Additional selected color Doppler and spectral images recorded. LIMITATIONS: None. FINDINGS: RIGHT KIDNEY: The right kidney measures 10.5 cm in length. The echotexture of the renal parenchymal is normal. The corticomedullary differentiation is preserved. There is no calcification , hydronephrosis or mass. LEFT KIDNEY: The left kidney measures 10.8 cm in length. The echotexture of the renal parenchymal i s normal. The corticomedullary differentiation is preserved. There is no calcification, hydronephro sis or mass. BLADDER: The urinary bladder is partially distended. OTHER FINDINGS: No other finding. IMPRESSION: 1. No appearance of the kidneys. 2. Limited evaluation of the partially distended urinary bladder. TECHNICAL DOCUMENTATION: JOB ID: [id number] [employer]- All Rights Reserved Reading location - IP/workstation name: [email or web address]
--- NOTE | 2019-09-19 16:17 | ER Document Report ---
ED Neck/Back Problem - General Chief Complaint: Back Pain Stated Complaint: LOW BACK PAIN Time Seen by Provider: 09/19/19 12:53 Mode of Arrival: Ambulatory Notes: CHIEF COMPLAINT: Left lower back pain for 3 days HPI: 49-year-old male presenting to the emergency department complaining of left lower back pain over the last 3 days. Patient does have a history of prior back injury but does not have daily back pain. Denies penile or testicular pain. Denies flank or abdominal pain. Denies nausea or vomiting. Denies fever. Denies dysuria. Patient states when he is still he does not have the back pain when he moves he has the back pain. Denies numbness or tingling in the extremity. Denies perineal numbness. Denies incontinence of urine or bowel ROS: See HPI - all other systems were reviewed and are otherwise negative Constitutional: no fever GI: no vomiting, no diarrhea : no dysuria Integumentary: no rash Allergy: no hives Musculoskeletal: no extremity pain or swelling, + back pain Neurological: no numbness/tingling MEDICATIONS: I agree with the patient medications as charted by the RN. ALLERGIES: I agree with the allergies as charted by the RN. PAST MEDICAL HISTORY/PAST SURGICAL HISTORY: Reviewed and agree as charted by RN. SOCIAL HISTORY: Reviewed and agree as charted by RN. FAMILY HISTORY: No significant familial comorbid conditions directly related to patient complaint EXAM: Reviewed vital signs as charted by RN. CONSTITUTIONAL: Alert and oriented and responds appropriately to questions. Well-appearing; well-nourished HEAD: Normocephalic; atraumatic EYES: Conjunctivae clear, sclerae non-icteric ENT: normal nose; no rhinorrhea; moist mucous membranes NECK: Supple without meningismus; non-tender; no cervical lymphadenopathy CARD: symmetric distal pulses RESP: Normal chest excursion without splinting or tachypnea ABD/GI: Normal bowel sounds; non-distended; soft, non-tender, no rebound, no guarding; no palpable organomegaly or masses. BACK: The back appears normal and is nontender to palpation over the thoracic and lumbar spine. There is mild tenderness with muscle spasm in the left lower lateral lumbar back, there is no CVA tenderness EXT: Normal ROM in all joints; non-tender to palpation; no cyanosis, no effusions, no edema SKIN: Normal color for age and race; warm; dry; good turgor; no acute lesions noted NEURO: Moves all extremities equally; Motor and sensory function intact. Strength equal 5/5 bilateral lower extremities. Sensation intact and equal bilateral lower extremities. Straight leg raise is negative. No saddle anesthesia on exam. DTRs 2+ intact and equal bilateral lower extremities. PSYCH: The patient's mood and manner are appropriate. Grooming and personal hygiene are appropriate. MDM: 49-year-old obese male with left lower back pain no specific injury, pain goes away when he is still reoccurs with movement or palpation. He is neurologically intact low suspicion for cauda equina. Likely a musculoskeletal injury. Initial evaluation through the triage process. Patient had lab work, urinalysis, renal ultrasound that was all negative. I have low suspicion for renal colic in this patient. Will discharge on anti-inflammatory, muscle relaxer, orthopedic referral TRAVEL OUTSIDE OF THE [place] IN LAST 30 DAYS: No - Related Data Allergies/Adverse Reactions: No Known Allergies Allergy (Verified 04/01/19 10:56) Home Medications: "water pill" Past Medical History - General Information source: Patient - Social History Smoking Status: Current Every Day Smoker Chew tobacco use (# tins/day): No Frequency of alcohol use: None Family History: Arthritis, CVA, Hyperlipidemia, Hypertension, Malignancy - Colon cancer Patient has suicidal ideation: No Patient has homicidal ideation: No Pulmonary Medical History: Reports: Hx Asthma, Hx Bronchitis, Hx Pneumonia, Hx Respiratory Failure, Hx Sleep Apnea Renal/ Medical History: Denies: Hx Peritoneal Dialysis Musculoskeletal Medical History: Reports Hx Musculoskeletal Deformity, Reports Hx Musculoskeletal Trauma Past Surgical History: Reports: Hx Adenoidectomy, Hx Oral Surgery - Clipped his uvula, Hx Tonsillectomy, Other - Tracheostomy - Immunizations Hx Diphtheria, Pertussis, Tetanus Vaccination: Yes Physical Exam - Vital signs Vitals: Temp Pulse Resp BP Pulse Ox 98.6 F 85 18 129/94 H 97 09/19/19 12:52 09/19/19 12:52 09/19/19 12:52 09/19/19 12:52 09/19/19 12:52 Course - Vital Signs Vital signs: Temp Pulse Resp BP Pulse Ox 98.6 F 85 18 129/94 H 97 09/19/19 12:52 09/19/19 12:52 09/19/19 12:52 09/19/19 12:52 09/19/19 12:52 - Laboratory Result Diagrams: 09/19/19 13:45 09/19/19 13:45 Laboratory results interpreted by me: 09/19/19 09/19/19 13:45 13:45 Carbon Dioxide 33 H Urine Blood SMALL H Urine Urobilinogen 2.0 H Discharge - Discharge Clinical Impression: Low back pain Qualifiers: Chronicity: acute Back pain laterality: left Sciatica presence: without sciatica Qualified Code(s): M54.5 - Low back pain Condition: Stable Disposition: HOME, SELF-CARE Additional Instructions: 1. Warm heat to the lower back twice daily 2. no heavy lifting for 2-3 days 3. medications as prescribed, no driving on muscle relaxers 4. follow up with orthopedics for further evaluation and treatment as needed for any continuing pain or problems, call for appt. 5. return to the ER for any onset of incontinence of urine, fever > 101 or worsening condition Prescriptions: Cyclobenzaprine HCl [Flexeril 10 mg Tablet] 10 mg PO TIDP PRN #15 tab PRN Reason: Naproxen 500 mg PO BID PRN #14 tablet PRN Reason: Referrals: SYEDA VARGAS JR, DO [ACTIVE PROVISIONAL STAFF] - Follow up as needed
[2019-09-19 16:42] VITALS: BP 128/90
== END 2019-09-19 16:41 | disposition home or self-care (01) ==
LOC: ER 12:08
DX: M54.5 Low back pain (principal); F17.200 Nicotine dependence, unspecified, uncomplicated; J45.909 Unspecified asthma, uncomplicated
CPT/HCPCS: 36415; 76775; 80053; 81001; 85025; 99284

== ENCOUNTER → 2020-09-26 | Outpatient (CLI) | payer BC ==
[2020-09-26 12:09] VITALS: BP 146/93
--- NOTE | 2020-09-26 12:09 | ER RDC ASSESSMENT REPORT ---
Intake - In the Last 14 days Have you traveled outside [place]?: No Have you been in close contact with someone CONFIRMED: Yes Worked in Healthcare?: No - Symptoms Subjective Fever([place] feverish): No Chills: No Muscule Aches: Yes Runny Nose: No Sore Throat: No Cough (New or worsening chronic cough): No Shortness of breath: No Nausea or Vomiting: Yes Headache: Yes Abdominal Pain: No Diarrhea(3 or more loose stools in last 24 hours): Yes - Do you have any of the following Chronic lung disease: Asthma or emphysema or COPD: Yes Chronic Lung Disease Comment: History of COPD Cystic Fibrosis: No Diabetes: No High Blood Pressure: No Cardiovascular Disease: No Chronic Kidney Disease: No Chronic Liver Disease: No Chronic blood disorder like Sickle Cell Disease: No Weak immune system due to disease or medication: No Neurologic condition that limits movement: No Recent (within past 2 weeks) or current : No Morbid Obesity (>100 pounds over ideal weight): No Obesity Comment: Height 5 feet 7 inches weight 295 pounds - Objective Temperature: 98.7 F Pulse Rate: 90 Respiratory Rate: 16 Blood Pressure: 146/93 O2 Sat by Pulse Oximetry: 95 Objective: Given above, testing performed: If Testing Performed: Test Specimen Type Sent to General - General Information source: Patient Notes: Patient here at [facility] for Covid testing patient reports had exposure to Covid through 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 Patient started to have symptoms 2 days ago which included muscle aches congestion nausea headache and diarrhea. Patient does not have any local PCP does have a history of COPD. - Related Data Allergies/Adverse Reactions: No Known Allergies Allergy (Verified 04/01/19 10:56) Past Medical History - General Information source: Patient - Social History Smoking Status: Never Smoker Family History: Arthritis, CVA, Hyperlipidemia, Hypertension, Malignancy - Colon cancer Pulmonary Medical History: Reports: Hx Asthma, Hx Bronchitis, Hx Pneumonia, Hx Respiratory Failure, Hx Sleep Apnea Renal/ Medical History: Denies: Hx Peritoneal Dialysis Musculoskeletal Medical History: Reports Hx Musculoskeletal Deformity, Reports Hx Musculoskeletal Trauma Past Surgical History: Reports: Hx Adenoidectomy, Hx Oral Surgery - Clipped his uvula, Hx Tonsillectomy, Other - Tracheostomy Physical Exam - General General appearance: Appears well, Alert In distress: None Notes: PHYSICAL EXAMINATION: GENERAL: Well-appearing and in no acute distress. HEAD: Atraumatic, normocephalic. EYES: sclera anicteric, conjunctiva are normal. ENT: nares patent. Moist mucous membranes. NECK: Normal range of motion, supple without lymphadenopathy LUNGS: CTAB and equal. No wheezes rales or rhonchi. respirations even and unlabored lung sounds clear. HEART: Regular rate and rhythm without murmurs ABDOMEN: Soft, nontender, normal bowel sounds, no guarding. EXTREMITIES: Normal range of motion, no pitting edema. No cyanosis. NEUROLOGICAL: Cranial nerves grossly intact. Normal speech. Normal gait. PSYCH: Normal mood, normal affect. SKIN: Warm, Dry, normal turgor, no rashes or lesions noted Diagnostic Results Laboratory Results: Pending strep culture. Pending Covid testing results. Patient provided in structions regarding Covid to include: As a person under investigation for Covid 19, the [place] department of Health and Human Services, division of public health advises you to adhere to the following guidance until your test results are reported to you. If your test result is positive, you will receive additional information from your provider and your local health department at that time. Remain at home until you are cleared by the health provider or public health authorities. Keep a log of visitors to your home, notify any visitors to your home of your isolation status. If you plan to move to a new address or leave the county, notify the local health department in your County. Call your doctor or seek care if you have an urgent medical need. Before seeking medical care, call ahead to get instructions from the provider before arriving at the medical office clinic or hospital. Notify them that you are being tested for the virus that causes Covid 19 so that arrangements can be made, as necessary, to prevent transmission to others in the healthcare setting. Next, notify the local health department in your county. If a medical emergency arises and you need to call 911, inform the first responders that you are being tested for the virus that causes Covid 19. Next, notify the local health department in your county. Patient Education/Counseling Counseling/Education: Patient presents with upper respiratory symptoms worrisome for possible Covid 19. Patient does not have emergency worring symptoms such as difficulty breathing, shortness of breath, chest pain, pressure, confusion or cyanosis. Patient appears suitable for discharge. Patient instructed to follow-up at urgent care or ED for persistent or worsening symptoms. Patient's vital signs are stable and patient is nontoxic in appearance. Good return precautions have been discussed with patient, patient verbalized understanding and is agreeable with discharge plan of care at this time. C Discharge - Discharge Clinical Impression: Flu-like symptoms, Encounter for screening laboratory testing for COVID-19 virus Condition: Stable Disposition: Home; Selfcare
[2020-09-26 12:15] LABS: A TYPE INFLUENZA AG NEGATIVE (NEGATIVE); B INFLUENZA AG NEGATIVE (NEGATIVE)
== END ==
LOC: RDC 09:55
PROVIDERS: ATTEND Nurse Practitioner Family
DX: Z20.822 Contact with and (suspected) exposure to COVID-19 (principal); M79.10 Myalgia, unspecified site; R11.10 Vomiting, unspecified; R19.7 Diarrhea, unspecified; J44.9 Chronic obstructive pulmonary disease, unspecified
CPT/HCPCS: 87070; 87880; 87804; U0003; C9803; 87635